=== PATIENT | female | born 1950 | race African-American/Black ===

== ENCOUNTER 2018-06-06 11:54 | Inpatient (IN) | payer MEDICARE, MEDICAID ==
[~2018-06-06] VITALS: Ht 160 cm; Wt 72.1 kg
[~2018-06-06 11:54] MED LIST: ALBU2.5V13; DULERA; PHEN100C4; PROAIR; QVAR80 IH; SPIRIVA; TIOT18CA3; VENTOLIN; [UNRECOGNIZED DRUG - REMARK]
[2018-06-06] MEDS ORDERED: SODIUM CHLORIDE 0.9% 1,000 ML IV ONE (13:16)
[2018-06-06] MEDS ORDERED: IPRATROPIUM/ALBUTEROL 0.5-3(2.5)MG/3ML NEB HHN ONE (13:30)
[2018-06-06 13:42] LABS: BASOPHILS % 0.5 % (0.0-2.0); HEMATOCRIT. 25.5 % (36.0-48.0); HEMOGLOBIN. 8.5 g/dL (12.0-16.0); LYMPHOCYTES % 19.5 % (20.0-50.0); MEAN CORPUSCULAR HEMOGLOBIN 32.9 pg (28.0-32.0); MEAN CORPUSCULAR VOLUME 98.2 fL (81.0-99.0); MEAN PLATELET VOLUME 7.5 fl (7.4-10.4); MONOCYTES % 14.5 % (2.0-8.0); NEUTROPHILS % 65.5 % (40.0-76.0); PLATELET 139 x1000/uL (130-400); RED CELL DISTRIBUTION WIDTH 15.8 % (11.6-14.6)
[2018-06-06 13:48] LABS: CHLORIDE 106 mEq/L (98-107)
[2018-06-06 13:50] LABS: PROTHROMBIN TIME 10.2 sec (9.6-11.0)
[2018-06-06 13:56] LABS: CREATINE KINASE 48 IU/L (26-192)
[2018-06-06 13:59] LABS: CREATINE KINASE MB FRACTION 1.3 ng/mL (0.5-3.6)
[2018-06-06 15:10] LABS: BG BASE EXCESS -12.9 mmol/L (-2.0-2.0); BG CARBOXYHEMOGLOBIN 0.3 % (0.5-1.5); BG DEOXYHEMOGLOBIN 2.3 % (0.0-5.0); BG FRACTION INSPIRED OXYGEN 21; BG HCO3 ACT 11.5 mmol/L (22.0-26.0); BG METHEMOGLOBIN 0.8 % (0.0-1.5); BG OXYGEN SATURATION 97.7 % (92.0-98.5); BG OXYHEMOGLOBIN 96.6 % (94.0-97.0); BG PCO2 22.2 mmHg (35.0-45.0); BG PH 7.334 (7.350-7.450); BG PO2 118.3 mmHg (75.0-100.0); BG SAMPLE SITE RIGHT BRACHIAL; BG TOTAL HEMOGLOBIN 7.6 g/dL (12.0-18.0); BG VENT MODE ROOM AIR
[2018-06-06] MEDS ORDERED: DOCUSATE SODIUM 100MG CAPSULE PO PRN (17:45)
[2018-06-06] MEDS ORDERED: MAGNESIUM/ALUMINUM HYDROXIDE/SIMETHICONE 30ML UDC PO PRN (17:45)
[2018-06-06] MEDS ORDERED: GUAIFENESIN 200MG/10ML SUGAR FREE UDC PO PRN (17:45)
[2018-06-06] MEDS ORDERED: DEXTROSE 50% WATER 50ML SYRINGE IV PRN (17:45)
[2018-06-06] MEDS ORDERED: ONDANSETRON HCL 4MG/2ML INJ IV PRN (17:45)
[2018-06-06] MEDS ORDERED: HYDRALAZINE 20MG/ML VIAL IV PRN (17:45)
[2018-06-06] MEDS ORDERED: ACETAMINOPHEN 325MG TABLET PO PRN (17:45)
[2018-06-06] MEDS ORDERED: ENOXAPARIN 40MG/0.4ML SYR SUBCUT SCH (17:45)
[2018-06-06] MEDS ORDERED: IPRATROPIUM/ALBUTEROL 0.5-3(2.5)MG/3ML NEB INH PRN (17:45)
[2018-06-06] MEDS ORDERED: CLONIDINE 0.1MG TABLET PO PRN (17:45)
[2018-06-06] MEDS ORDERED: INSULIN LISPRO 100 UNITS/ML SUBCUT SCH (18:20)
[2018-06-06] MEDS ORDERED: HYDROMORPHONE HCL/PF 2MG/ML CPJ IV PRN (19:00)
[2018-06-06] MEDS: SODIUM CHLORIDE 0.9% 1,000 ML IV SCH (19:30)
[2018-06-06] MEDS: HYDROCODONE/ACETAMINOPHEN 5/325MG TABLET PO PRN (20:00)
[2018-06-06] MEDS ORDERED: ENOXAPARIN 40MG/0.4ML SYR SUBCUT NR (20:00)
[2018-06-06] MEDS ORDERED: BLOOD SUGAR DIAGNOSTIC STRIP TEST SCH (21:00)
[2018-06-06] MEDS ORDERED: NA PHOS,M-B/NA PHOS,DI-BA ENEMA 118ML PR PRN (21:00)
[2018-06-06 22:00] VITALS: BP 100/60
[2018-06-06] MEDS: LORAZEPAM 2MG/ML CPJ IV PRN (23:01)
[2018-06-06] MEDS: DIPHENHYDRAMINE 50MG/ML VIAL IV PRN (23:02)
[2018-06-07] VITALS: BP 100/60
[2018-06-07 01:16] LABS: CREATINE KINASE 111 IU/L (26-192)
[2018-06-07 01:17] LABS: CREATINE KINASE MB FRACTION 3.1 ng/mL (0.5-3.6)
[2018-06-07] MEDS: SODIUM CHLORIDE 0.9% 1,000 ML IV SCH ×2 (03:55→19:42)
[2018-06-07 04:00] VITALS: BP 104/62
[2018-06-07 06:19] LABS: HEMATOCRIT. 22.2 % (36.0-48.0); HEMOGLOBIN. 7.2 g/dL (12.0-16.0); MEAN CORPUSCULAR HEMOGLOBIN 32.3 pg (28.0-32.0); MEAN CORPUSCULAR VOLUME 99.5 fL (81.0-99.0); MEAN PLATELET VOLUME 8.5 fl (7.4-10.4); PLATELET 114 x1000/uL (130-400); RED BLOOD CELL COUNT 2.24 mill/uL (4.2-5.4)
[2018-06-07 06:24] LABS: CHLORIDE 114 mEq/L (98-107)
[2018-06-07 06:44] LABS: CREATINE KINASE 97 IU/L (26-192)
[2018-06-07 06:45] LABS: T4 FREE 0.69 ng/dL (0.76-1.46)
[2018-06-07 06:50] LABS: CREATINE KINASE MB FRACTION 3.2 ng/mL (0.5-3.6)
[2018-06-07 08:00] VITALS: BP 112/56
[2018-06-07 11:22] LABS: NUCLEATED RED BLOOD CELLS 1 /100 WBC
[2018-06-07 11:23] LABS: PLATELET ESTIMATE DECREASED
[2018-06-07 12:00] VITALS: BP 105/61
[2018-06-07 16:00] VITALS: BP 100/60
[2018-06-07 16:38] LABS: HEMATOCRIT. 26.6 % (36.0-48.0); HEMOGLOBIN. 8.5 g/dL (12.0-16.0); MEAN CORPUSCULAR HEMOGLOBIN 33.1 pg (28.0-32.0); MEAN PLATELET VOLUME 8.3 fl (7.4-10.4); PLATELET 143 x1000/uL (130-400); RED BLOOD CELL COUNT 2.59 mill/uL (4.2-5.4); RED CELL DISTRIBUTION WIDTH 15.8 % (11.6-14.6)
[2018-06-07 16:54] LABS: LDL CHOLESTEROL 63 mg/dL (5-100)
[2018-06-07 16:55] LABS: CREATINE KINASE 113 IU/L (26-192)
[2018-06-07 16:58] LABS: HDL CHOLESTEROL 59 mg/dL (40-59)
[2018-06-07 16:59] LABS: T4 FREE 0.76 ng/dL (0.76-1.46)
[2018-06-07 17:00] LABS: CREATINE KINASE MB FRACTION 2.9 ng/mL (0.5-3.6)
[2018-06-07 17:24] LABS: PLATELET ESTIMATE NORMAL
[2018-06-07 20:00] VITALS: BP 108/57
[2018-06-07] MEDS: DIPHENHYDRAMINE 50MG/ML VIAL IV PRN (20:35)
[2018-06-07] MEDS: SODIUM CHLORIDE 0.9% INJ 3ML FLUSH IVF SCH (20:36)
[2018-06-07] MEDS: ENOXAPARIN 40MG/0.4ML SYR SUBCUT SCH (20:36)
[2018-06-07] MEDS: LORAZEPAM 2MG/ML CPJ IV PRN (20:41)
[2018-06-08] VITALS (7 sets, daily range): BP systolic 97–140; BP diastolic 61–82
[2018-06-08 00:02] LABS: CREATINE KINASE 90 IU/L (26-192)
[2018-06-08 00:06] LABS: CREATINE KINASE MB FRACTION 2.9 ng/mL (0.5-3.6)
[2018-06-08] MEDS: DIPHENHYDRAMINE 50MG/ML VIAL IV PRN (00:47)
[2018-06-08 09:06] LABS: HEMOGLOBIN. 7.4 g/dL (12.0-16.0); MEAN CORPUSCULAR VOLUME 99.3 fL (81.0-99.0); PLATELET 149 x1000/uL (130-400); RED BLOOD CELL COUNT 2.31 mill/uL (4.2-5.4); RED CELL DISTRIBUTION WIDTH 15.6 % (11.6-14.6)
[2018-06-08 09:21] LABS: CHLORIDE 117 mEq/L (98-107)
[2018-06-08 09:30] LABS: CREATINE KINASE 69 IU/L (26-192)
[2018-06-08 09:32] LABS: CREATINE KINASE MB FRACTION 1.8 ng/mL (0.5-3.6)
[2018-06-08 09:35] LABS: PLATELET ESTIMATE NORMAL
[2018-06-08] MEDS: SODIUM CHLORIDE 0.9% INJ 3ML FLUSH IVF SCH ×2 (14:00→22:00)
[2018-06-08] MEDS: SODIUM CHLORIDE 0.9% 1,000 ML IV SCH ×2 (16:30→23:58)
[2018-06-08] MEDS: HYDROCODONE/ACETAMINOPHEN 5/325MG TABLET PO PRN (17:23)
[2018-06-08] MEDS: ENOXAPARIN 40MG/0.4ML SYR SUBCUT SCH (21:46)
[2018-06-09] VITALS (10 sets, daily range): BP systolic 108–140; BP diastolic 61–83
[2018-06-09] MEDS: SODIUM CHLORIDE 0.9% INJ 3ML FLUSH IVF SCH ×2 (06:00→21:46)
[2018-06-09 06:43] LABS: CHLORIDE 120 mEq/L (98-107)
[2018-06-09 07:08] LABS: MEAN CORPUSCULAR HEMOGLOBIN 32.8 pg (28.0-32.0); MEAN CORPUSCULAR VOLUME 99.8 fL (81.0-99.0); MEAN PLATELET VOLUME 7.9 fl (7.4-10.4); PLATELET 162 x1000/uL (130-400); RED BLOOD CELL COUNT 2.04 mill/uL (4.2-5.4); RED CELL DISTRIBUTION WIDTH 15.7 % (11.6-14.6)
[2018-06-09 07:44] LABS: HEMATOCRIT. 20.4 % (36.0-48.0); HEMOGLOBIN. 6.7 g/dL (12.0-16.0)
[2018-06-09 10:12] LABS: PLATELET ESTIMATE NORMAL
[2018-06-09] MEDS: SODIUM CHLORIDE 0.9% 1,000 ML IV SCH (15:31)
[2018-06-09 18:42] LABS: HEMATOCRIT 26.7 % (36.0-48.0); HEMOGLOBIN 8.9 g/dL (12.0-16.0)
[2018-06-09] MEDS: ENOXAPARIN 40MG/0.4ML SYR SUBCUT SCH (21:45)
[2018-06-09] MEDS: HYDROCODONE/ACETAMINOPHEN 5/325MG TABLET PO PRN (21:46)
[2018-06-10] VITALS: BP 132/81
[2018-06-10 04:00] VITALS: BP 130/81
[2018-06-10] MEDS: SODIUM CHLORIDE 0.9% INJ 3ML FLUSH IVF SCH (06:18)
[2018-06-10] MEDS: HYDROCODONE/ACETAMINOPHEN 5/325MG TABLET PO PRN (06:19)
[2018-06-10] MEDS: SODIUM CHLORIDE 0.9% 1,000 ML IV SCH (06:19)
[2018-06-10 06:58] LABS: HEMATOCRIT. 24.8 % (36.0-48.0); HEMOGLOBIN. 8.5 g/dL (12.0-16.0); MEAN CORPUSCULAR VOLUME 93.6 fL (81.0-99.0); MEAN PLATELET VOLUME 7.8 fl (7.4-10.4); PLATELET 169 x1000/uL (130-400); RED BLOOD CELL COUNT 2.65 mill/uL (4.2-5.4); RED CELL DISTRIBUTION WIDTH 16.8 % (11.6-14.6)
[2018-06-10 07:24] LABS: CHLORIDE 118 mEq/L (98-107)
[2018-06-10 07:50] VITALS: BP 112/62
[2018-06-10 08:04] VITALS: BP 112/62
[2018-06-10 09:20] LABS: PLATELET ESTIMATE NORMAL
== END 2018-06-10 13:43 | disposition home or self-care (01) | DRG 422 ==
LOC: ER 11:54 → 7WST 16:06 → EDBEDREQ 16:11 → ENRESERV 20:32
PROVIDERS: ADMIT Internal Medicine; ATTEND Internal Medicine
PROC: 30233N1 Transfusion of Nonautologous Red Blood Cells into Peripheral Vein, Percutaneous Approach (ICD-10-PCS; principal; 2018-06-09)
DX: E86.0 Dehydration (principal); I95.9 Hypotension, unspecified; E46 Unspecified protein-calorie malnutrition; G90.8 Other disorders of autonomic nervous system; J44.9 Chronic obstructive pulmonary disease, unspecified; D64.9 Anemia, unspecified; I10 Essential (primary) hypertension; F31.9 Bipolar disorder, unspecified; G40.909 Epilepsy, unspecified, not intractable, without status epilepticus; R62.7 Adult failure to thrive; R79.89 Other specified abnormal findings of blood chemistry; D72.819 Decreased white blood cell count, unspecified; Z79.899 Other long term (current) drug therapy; Z68.28 Body mass index [BMI] 28.0-28.9, adult; Z91.81 History of falling
CPT/HCPCS: 36415; 36600; 71045; 80048; 80061; 82375; 82550; 82553; 82805; 83036; 83605; 83880; 84439; 84443; 84484; 85014; 85018; 85379; 86850; 86900; 86920; 93005; 93306; 93970; 94640; 96360; 97116; 97162; 97530; 99285; C1893; J1170; J1200; J1650; J2060; J7030; J7040; J7620; P9016

== ENCOUNTER 2018-07-29 20:07 | Inpatient (IN) | payer MEDICARE, MEDICAID ==
[~2018-07-29] VITALS: Ht 160 cm; Wt 49.9 kg
[2018-07-29] MEDS ORDERED: KETOROLAC 30MG/ML VIAL IV STA (21:05)
[2018-07-29] MEDS ORDERED: ACETAMINOPHEN 325MG TABLET PO STA (21:05)
[2018-07-29] MEDS ORDERED: SODIUM CHLORIDE 0.9% 1,000 ML IV ONE ×2 (21:05→23:22)
[2018-07-29 21:35] LABS: BASOPHILS % 0.4 % (0.0-2.0); EOSINOPHILS % 0.1 % (0.0-5.0); HEMOGLOBIN. 9.4 g/dL (12.0-16.0); LYMPHOCYTES % 16.3 % (20.0-50.0); MEAN CORPUSCULAR HEMOGLOBIN 32.3 pg (28.0-32.0); MEAN CORPUSCULAR VOLUME 96.1 fL (81.0-99.0); MEAN PLATELET VOLUME 6.9 fl (7.4-10.4); MONOCYTES % 9.7 % (2.0-8.0); NEUTROPHILS % 73.5 % (40.0-76.0); PLATELET 470 x1000/uL (130-400); RED BLOOD CELL COUNT 2.92 mill/uL (4.2-5.4); RED CELL DISTRIBUTION WIDTH 15.9 % (11.6-14.6)
[2018-07-29 21:42] LABS: CHLORIDE 104 mEq/L (98-107)
[2018-07-29 22:15] LABS: CLARITY URINE CLEAR (CLEAR); COLOR URINE DARK YELLOW (YELLOW); KETONES URINE TRACE (NEGATIVE); LEUKOCYTE ESTERASE URINE TRACE (NEGATIVE); NITRITE URINE NEGATIVE (NEGATIVE); OCCULT BLOOD URINE NEGATIVE (NEGATIVE); PH URINE 5.5 (4.5-8.0); PROTEIN URINE TRACE (NEGATIVE); SPECIFIC GRAVITY URINE 1.021 (1.005-1.030)
[2018-07-29] MEDS ORDERED: PIPERACILLIN/TAZ 3.375G PREMIX 50 ML IV ONE (23:30)
[2018-07-29] MEDS ORDERED: VANCOMYCIN 1 G PREMIX 200 ML IV ONE (23:30)
[2018-07-30] MEDS ORDERED: ACETAMINOPHEN 325MG TABLET PO PRN (07:15)
[2018-07-30] MEDS ORDERED: DIPHENHYDRAMINE 50MG/ML VIAL IV PRN (07:15)
[2018-07-30] MEDS ORDERED: HYDROMORPHONE HCL/PF 2MG/ML CPJ IV PRN (07:15)
[2018-07-30] MEDS ORDERED: CLONIDINE 0.1MG TABLET PO PRN (07:15)
[2018-07-30] MEDS ORDERED: MAGNESIUM/ALUMINUM HYDROXIDE/SIMETHICONE 30ML UDC PO PRN (07:15)
[2018-07-30] MEDS ORDERED: LORAZEPAM 2MG/ML CPJ IV PRN (07:15)
[2018-07-30] MEDS ORDERED: HYDRALAZINE 20MG/ML VIAL IV PRN (07:15)
[2018-07-30] MEDS ORDERED: IPRATROPIUM/ALBUTEROL 0.5-3(2.5)MG/3ML NEB INH PRN (07:15)
[2018-07-30] MEDS ORDERED: DOCUSATE SODIUM 100MG CAPSULE PO PRN (07:15)
[2018-07-30] MEDS ORDERED: ONDANSETRON HCL 4MG/2ML INJ IV PRN (07:15)
[2018-07-30] MEDS ORDERED: GUAIFENESIN 200MG/10ML SUGAR FREE UDC PO PRN (07:15)
[2018-07-30] MEDS ORDERED: NA PHOS,M-B/NA PHOS,DI-BA ENEMA 118ML PR PRN (09:00)
[2018-07-30 09:20] VITALS: BP 137/64
[2018-07-30] MEDS ORDERED: LEVOFLOXACIN 500MG PREMIX 100 ML IV SCH (11:00)
[2018-07-30] MEDS: HYDROCODONE/ACETAMINOPHEN 10/325MG TABLET PO PRN ×2 (11:15→21:40)
[2018-07-30] MEDS: ENOXAPARIN 40MG/0.4ML SYR SUBCUT SCH (11:15)
[2018-07-30 12:00] VITALS: BP 138/78
[2018-07-30 15:22] LABS: CREATINE KINASE 22 IU/L (26-192)
[2018-07-30 15:23] LABS: CREATINE KINASE MB FRACTION 1.2 ng/mL (0.5-3.6)
[2018-07-30 17:09] VITALS: BP 113/74
[2018-07-30] MEDS: SODIUM CHLORIDE 0.9% INJ 3ML FLUSH IVF SCH ×2 (18:50→21:43)
[2018-07-30 20:00] VITALS: BP 147/97
[2018-07-31] VITALS: BP 114/67
[2018-07-31 00:09] LABS: CREATINE KINASE 19 IU/L (26-192)
[2018-07-31 00:10] LABS: CREATINE KINASE MB FRACTION < 1.0 ng/mL (0.5-3.6)
[2018-07-31 04:00] VITALS: BP 124/71
[2018-07-31] MEDS: SODIUM CHLORIDE 0.9% INJ 3ML FLUSH IVF SCH ×3 (05:45→22:30)
[2018-07-31 06:01] LABS: BASOPHILS % 0.3 % (0.0-2.0); EOSINOPHILS % 0.1 % (0.0-5.0); HEMATOCRIT. 22.4 % (36.0-48.0); HEMOGLOBIN. 7.9 g/dL (12.0-16.0); LYMPHOCYTES % 22.7 % (20.0-50.0); MEAN CORPUSCULAR HEMOGLOBIN 34.1 pg (28.0-32.0); MEAN CORPUSCULAR VOLUME 96.6 fL (81.0-99.0); MEAN PLATELET VOLUME 7.3 fl (7.4-10.4); MONOCYTES % 14.5 % (2.0-8.0); NEUTROPHILS % 62.4 % (40.0-76.0); PLATELET 361 x1000/uL (130-400); RED BLOOD CELL COUNT 2.32 mill/uL (4.2-5.4); RED CELL DISTRIBUTION WIDTH 15.5 % (11.6-14.6)
[2018-07-31 06:37] LABS: CHLORIDE 108 mEq/L (98-107)
[2018-07-31] MEDS: ENOXAPARIN 40MG/0.4ML SYR SUBCUT SCH (07:56)
[2018-07-31 12:00] VITALS: BP 126/72
[2018-07-31 16:00] VITALS: BP 130/79
[2018-07-31 16:46] LABS: CLARITY URINE CLEAR (CLEAR); COLOR URINE YELLOW (YELLOW); KETONES URINE NEGATIVE (NEGATIVE); LEUKOCYTE ESTERASE URINE 2+ (NEGATIVE); NITRITE URINE NEGATIVE (NEGATIVE); OCCULT BLOOD URINE NEGATIVE (NEGATIVE); PH URINE 6.5 (4.5-8.0); PROTEIN URINE NEGATIVE (NEGATIVE); SPECIFIC GRAVITY URINE 1.011 (1.005-1.030); UROBILINOGEN URINE 0.2 E.U./dL (0.2-1.0)
[2018-08-01] VITALS: BP 129/76
[2018-08-01 04:00] VITALS: BP 146/80
[2018-08-01] MEDS: SODIUM CHLORIDE 0.9% INJ 3ML FLUSH IVF SCH ×3 (06:00→21:39)
[2018-08-01] MEDS ORDERED: ALBUTEROL (0.083%) 2.5MG/3ML NEB HHN PRN (07:15)
[2018-08-01 07:42] LABS: BASOPHILS % 0.2 % (0.0-2.0); EOSINOPHILS % 0.1 % (0.0-5.0); HEMATOCRIT. 21.3 % (36.0-48.0); HEMOGLOBIN. 7.2 g/dL (12.0-16.0); LYMPHOCYTES % 21.8 % (20.0-50.0); MEAN CORPUSCULAR HEMOGLOBIN 32.4 pg (28.0-32.0); MEAN CORPUSCULAR VOLUME 95.5 fL (81.0-99.0); MEAN PLATELET VOLUME 7.2 fl (7.4-10.4); MONOCYTES % 13.1 % (2.0-8.0); NEUTROPHILS % 64.8 % (40.0-76.0); PLATELET 362 x1000/uL (130-400); RED BLOOD CELL COUNT 2.23 mill/uL (4.2-5.4); RED CELL DISTRIBUTION WIDTH 15.4 % (11.6-14.6)
[2018-08-01 07:44] LABS: CHLORIDE 109 mEq/L (98-107)
[2018-08-01 07:52] VITALS: BP 120/80
[2018-08-01] MEDS ORDERED: APIX5TAB PO (08:42)
[2018-08-01] MEDS: ENOXAPARIN 40MG/0.4ML SYR SUBCUT SCH (09:08)
[2018-08-01] MEDS ORDERED: LEVOFLOXACIN 250MG TABLET PO SCH (11:00)
[2018-08-01 12:00] VITALS: BP 119/75
[2018-08-01] MEDS ORDERED: LEVOFLOXACIN 250MG PREMIX 50 ML IV SCH ×2 (14:15→21:00)
[2018-08-01 16:00] VITALS: BP 134/79
[2018-08-01 20:00] VITALS: BP 116/67
[2018-08-01] MEDS: HYDROCODONE/ACETAMINOPHEN 10/325MG TABLET PO PRN (21:52)
[2018-08-02] VITALS: BP 121/72
[2018-08-02 04:00] VITALS: BP 137/75
[2018-08-02 08:00] VITALS: BP 114/69
[2018-08-02] MEDS: ENOXAPARIN 40MG/0.4ML SYR SUBCUT SCH (08:15)
[2018-08-02 08:59] VITALS: BP 114/69
[2018-08-03 08:00] VITALS: BP 112/59
== END 2018-08-02 10:28 | disposition home or self-care (01) | DRG 720 ==
LOC: ER 20:07 → 7WST 07-30 00:34 → EDBEDREQ 07-30 00:36 → EDBEDREQSVC 07-30 00:36 → EDBEDREQTM 07-30 00:37 → ENRESERV 07-30 07:06 → 6WST 07-31 08:09
PROVIDERS: ADMIT Internal Medicine; ATTEND Internal Medicine
DX: A41.9 Sepsis, unspecified organism (principal); E87.2 Acidosis; E44.0 Moderate protein-calorie malnutrition; J43.9 Emphysema, unspecified; M16.11 Unilateral primary osteoarthritis, right hip; D64.9 Anemia, unspecified; I10 Essential (primary) hypertension; Z53.29 Procedure and treatment not carried out because of patient's decision for other reasons; W18.30XA Fall on same level, unspecified, initial encounter; Y93.89 Activity, other specified; Y92.091 Bathroom in other non-institutional residence as the place of occurrence of the external cause; Y99.8 Other external cause status
CPT/HCPCS: 36415; 71045; 73502; 80048; 82550; 82553; 83605; 84484; 93970; 94640; 96374; 97162; 97164; 99285; C1893; J1170; J1650; J1885; J1956; J2543; J3370; J7030; J7040; J7620

== ENCOUNTER 2018-10-03 10:50 | Emergency (ER) | payer MEDICARE, MEDICAID ==
[~2018-10-03] VITALS: Ht 160 cm; Wt 61.0 kg
[~2018-10-03 10:50] MED LIST changes: +APIX5TAB PO
[2018-10-03] MEDS ORDERED: KETOROLAC 30MG/ML VIAL IM ONE (12:00)
[2018-10-03 15:49] VITALS: BP 115/84
== END 2018-10-03 15:49 | disposition home or self-care (01) ==
LOC: ER 10:50
DX: S70.01XA Contusion of right hip, initial encounter (principal); W05.0XXA Fall from non-moving wheelchair, initial encounter; Y93.9 Activity, unspecified; Y92.9 Unspecified place or not applicable; I10 Essential (primary) hypertension; R56.9 Unspecified convulsions
CPT/HCPCS: 72170; 96372; 99283; J1885

== ENCOUNTER 2018-11-01 10:36 | Inpatient (IN) | payer MEDICARE, MEDICAID ==
[~2018-11-01] VITALS: Ht 162.6 cm; Wt 59.0 kg
[2018-11-01] MEDS ORDERED: MORPHINE SULFATE 4 MG/ML CPJ (NOT FOR IM USE) IV ONE (12:00)
[2018-11-01] MEDS ORDERED: ALBUTEROL (0.083%) 2.5MG/3ML NEB HHN ONE (12:00)
[2018-11-01] MEDS ORDERED: IPRATROPIUM BROMIDE (0.02%) 0.5MG/2.5ML NEB HHN ONE (12:00)
[2018-11-01 12:08] LABS: CHLORIDE 101 mEq/L (98-107)
[2018-11-01 12:13] LABS: BASOPHILS % 0.8 % (0.0-2.0); EOSINOPHILS % 0.1 % (0.0-5.0); HEMATOCRIT. 34.4 % (36.0-48.0); HEMOGLOBIN. 11.4 g/dL (12.0-16.0); LYMPHOCYTES % 14.6 % (20.0-50.0); MEAN CORPUSCULAR VOLUME 93.3 fL (81.0-99.0); MEAN PLATELET VOLUME 7.1 fl (7.4-10.4); MONOCYTES % 11.6 % (2.0-8.0); NEUTROPHILS % 72.9 % (40.0-76.0); PLATELET 602 x1000/uL (130-400); RED BLOOD CELL COUNT 3.69 mill/uL (4.2-5.4)
[2018-11-01 16:00] VITALS: BP 144/94
[2018-11-01] MEDS ORDERED: ONDANSETRON HCL 4MG/2ML INJ IV PRN (17:30)
[2018-11-01] MEDS ORDERED: MAGNESIUM/ALUMINUM HYDROXIDE/SIMETHICONE 30ML UDC PO PRN (17:30)
[2018-11-01] MEDS ORDERED: ACETAMINOPHEN 325MG TABLET PO PRN (17:30)
[2018-11-01] MEDS ORDERED: DOCUSATE SODIUM 100MG CAPSULE PO PRN (17:30)
[2018-11-01] MEDS ORDERED: HYDROMORPHONE HCL/PF 2MG/ML CPJ IV PRN (17:30)
[2018-11-01] MEDS ORDERED: DIPHENHYDRAMINE 50MG/ML VIAL IV PRN (17:30)
[2018-11-01] MEDS ORDERED: GUAIFENESIN 200MG/10ML SUGAR FREE UDC PO PRN (17:30)
[2018-11-01] MEDS ORDERED: LORAZEPAM 2MG/ML CPJ IV PRN (17:30)
[2018-11-01] MEDS ORDERED: CLONIDINE 0.1MG TABLET PO PRN (17:30)
[2018-11-01] MEDS ORDERED: IPRATROPIUM/ALBUTEROL 0.5-3(2.5)MG/3ML NEB HHN PRN (17:30)
[2018-11-01] MEDS ORDERED: NA PHOS,M-B/NA PHOS,DI-BA ENEMA 118ML PR PRN (17:30)
[2018-11-01] MEDS: ENOXAPARIN 40MG/0.4ML SYR SUBCUT SCH (18:56)
[2018-11-01 20:00] VITALS: BP 137/88
[2018-11-01] MEDS: SODIUM CHLORIDE 0.9% INJ 3ML FLUSH IVF SCH (22:30)
[2018-11-01 23:56] LABS: CREATINE KINASE 32 IU/L (26-192)
[2018-11-01 23:58] LABS: CREATINE KINASE MB FRACTION < 1.0 ng/mL (0.5-3.6)
[2018-11-02] VITALS: BP 112/78
[2018-11-02 04:00] VITALS: BP 110/66
[2018-11-02] MEDS: SODIUM CHLORIDE 0.9% INJ 3ML FLUSH IVF SCH ×3 (06:30→20:32)
[2018-11-02 08:00] VITALS: BP 122/67
[2018-11-02] MEDS ORDERED: ASPIRIN 81MG EC TABLET PO SCH (09:00)
[2018-11-02 09:16] LABS: CHLORIDE 105 mEq/L (98-107); HEMOGLOBIN. 10.1 g/dL (12.0-16.0); MEAN CORPUSCULAR HEMOGLOBIN 31.2 pg (28.0-32.0); MEAN CORPUSCULAR VOLUME 92.8 fL (81.0-99.0); PLATELET 555 x1000/uL (130-400); RED BLOOD CELL COUNT 3.24 mill/uL (4.2-5.4); RED CELL DISTRIBUTION WIDTH 15.6 % (11.6-14.6)
[2018-11-02 09:30] LABS: CREATINE KINASE 12 IU/L (26-192); CREATINE KINASE MB FRACTION < 1.0 ng/mL (0.5-3.6); HDL CHOLESTEROL 59 mg/dL (40-59); LDL CHOLESTEROL 75 mg/dL (5-100); T4 FREE 0.98 ng/dL (0.76-1.46)
[2018-11-02 12:00] VITALS: BP 128/78
[2018-11-02 13:16] LABS: PLATELET ESTIMATE INCREASED
[2018-11-02] MEDS: HYDROCODONE/ACETAMINOPHEN 10/325MG TABLET PO PRN (13:37)
[2018-11-02 16:00] VITALS: BP 121/78
[2018-11-02 16:49] LABS: INR 1.1; PROTHROMBIN TIME 11.2 sec (9.6-11.0)
[2018-11-02] MEDS: ENOXAPARIN 40MG/0.4ML SYR SUBCUT SCH (17:45)
[2018-11-02 20:00] VITALS: BP 132/77
[2018-11-02] MEDS: BUDESONIDE 0.5MG/2ML NEB HHN SCH (20:47)
[2018-11-02] MEDS: IPRATROPIUM/ALBUTEROL 0.5-3(2.5)MG/3ML NEB HHN SCH (20:47)
[2018-11-03] VITALS: BP 117/64
[2018-11-03] MEDS: IPRATROPIUM/ALBUTEROL 0.5-3(2.5)MG/3ML NEB HHN SCH ×4 (02:25→20:47)
[2018-11-03 04:00] VITALS: BP 115/65
[2018-11-03] MEDS: SODIUM CHLORIDE 0.9% INJ 3ML FLUSH IVF SCH ×3 (06:43→21:48)
[2018-11-03 08:00] VITALS: BP 112/63
[2018-11-03] MEDS: BUDESONIDE 0.5MG/2ML NEB HHN SCH ×3 (09:27→20:47)
[2018-11-03 11:56] VITALS: BP 128/73
[2018-11-03] MEDS: HYDROCODONE/ACETAMINOPHEN 10/325MG TABLET PO PRN ×2 (12:07→21:48)
[2018-11-03] MEDS: PHENYTOIN SODIUM EXTENDED 100MG CAPSULE PO SCH ×2 (14:11→21:47)
[2018-11-03 16:00] VITALS: BP 128/68
[2018-11-03] MEDS: ENOXAPARIN 40MG/0.4ML SYR SUBCUT SCH (18:00)
[2018-11-04] VITALS: BP 101/59
[2018-11-04] MEDS: IPRATROPIUM/ALBUTEROL 0.5-3(2.5)MG/3ML NEB HHN SCH ×4 (01:33→20:31)
[2018-11-04 04:00] VITALS: BP 102/61
[2018-11-04] MEDS: PHENYTOIN SODIUM EXTENDED 100MG CAPSULE PO SCH ×3 (05:48→21:44)
[2018-11-04] MEDS: SODIUM CHLORIDE 0.9% INJ 3ML FLUSH IVF SCH ×3 (05:48→21:44)
[2018-11-04] MEDS: BUDESONIDE 0.5MG/2ML NEB HHN SCH ×2 (07:09→20:34)
[2018-11-04] MEDS: HYDROCODONE/ACETAMINOPHEN 10/325MG TABLET PO PRN (08:21)
[2018-11-04 16:00] VITALS: BP 116/69
[2018-11-04] MEDS: ENOXAPARIN 40MG/0.4ML SYR SUBCUT SCH (16:54)
[2018-11-04 20:00] VITALS: BP 123/69
[2018-11-05] VITALS: BP 130/70
[2018-11-05 04:00] VITALS: BP 124/79
[2018-11-05] MEDS: PHENYTOIN SODIUM EXTENDED 100MG CAPSULE PO SCH (06:09)
[2018-11-05] MEDS: SODIUM CHLORIDE 0.9% INJ 3ML FLUSH IVF SCH (06:09)
[2018-11-05 08:00] VITALS: BP 116/72
[2018-11-05] MEDS: IPRATROPIUM/ALBUTEROL 0.5-3(2.5)MG/3ML NEB HHN SCH ×3 (08:31→13:53)
[2018-11-05] MEDS: BUDESONIDE 0.5MG/2ML NEB HHN SCH (08:31)
[2018-11-05] MEDS: HYDROCODONE/ACETAMINOPHEN 10/325MG TABLET PO PRN (09:44)
[2018-11-05 12:00] VITALS: BP 112/68
[2018-11-05 15:52] VITALS: BP 112/68
== END 2018-11-05 16:40 | disposition home or self-care (01) | DRG 133 ==
LOC: ER 10:36 → 8WST 15:02 → EDBEDREQTM 15:10 → EDBEDREQ 15:10 → ENRESERV 15:26
PROVIDERS: ADMIT Internal Medicine; ATTEND Internal Medicine
PROC: 0W993ZZ Drainage of Right Pleural Cavity, Percutaneous Approach (ICD-10-PCS; principal; 2018-11-03)
DX: J96.00 Acute respiratory failure, unspecified whether with hypoxia or hypercapnia (principal); E43 Unspecified severe protein-calorie malnutrition; J91.8 Pleural effusion in other conditions classified elsewhere; I50.32 Chronic diastolic (congestive) heart failure; I11.0 Hypertensive heart disease with heart failure; G40.909 Epilepsy, unspecified, not intractable, without status epilepticus; D64.9 Anemia, unspecified; J43.9 Emphysema, unspecified; G89.29 Other chronic pain; R01.1 Cardiac murmur, unspecified; D72.825 Bandemia; Z68.22 Body mass index [BMI] 22.0-22.9, adult; Z79.01 Long term (current) use of anticoagulants; Z91.81 History of falling; Z79.899 Other long term (current) drug therapy
CPT/HCPCS: 32555; 36415; 71045; 80061; 82040; 82550; 82553; 82962; 83615; 83880; 84439; 84443; 84484; 88108; 88312; 93005; 94640; 96374; 97161; 97166; 99285; C1893; J1650; J2270; J7611; J7620; J7626

== ENCOUNTER 2019-07-16 07:50 | Inpatient (IN) | payer MEDICARE, MEDICAID ==
[~2019-07-16] VITALS: Ht 312.4 cm; Wt 47.4 kg
[~2019-07-16 07:50] MED LIST changes: +TOPUD PO
[2019-07-16] MEDS ORDERED: NALOXONE HCL 1 MG/ML 2ML VIAL IV ONE (08:15)
[2019-07-16 08:43] LABS: BG BASE EXCESS -3.9 mmol/L (-2.0-2.0); BG CARBOXYHEMOGLOBIN 0.3 % (0.5-1.5); BG DEOXYHEMOGLOBIN 2.8 % (0.0-5.0); BG FRACTION INSPIRED OXYGEN 21; BG HCO3 ACT 18.9 mmol/L (22.0-26.0); BG METHEMOGLOBIN 0.1 % (0.0-1.5); BG OXYGEN SATURATION 97.2 % (92.0-98.5); BG OXYHEMOGLOBIN 96.8 % (94.0-97.0); BG PCO2 27.4 mmHg (35.0-45.0); BG PH 7.457 (7.350-7.450); BG PO2 99.8 mmHg (75.0-100.0); BG SAMPLE SITE RIGHT BRACHIAL; BG TOTAL HEMOGLOBIN 10.9 g/dL (12.0-18.0); BG VENT MODE ROOM AIR
[2019-07-16 08:45] LABS: BASOPHILS % 0.5 % (0.0-2.0); EOSINOPHILS % 1.2 % (0.0-5.0); HEMATOCRIT. 34.2 % (36.0-48.0); HEMOGLOBIN. 11.6 g/dL (12.0-16.0); LYMPHOCYTES % 25.2 % (20.0-50.0); MEAN CORPUSCULAR HEMOGLOBIN 30.8 pg (28.0-32.0); MEAN CORPUSCULAR VOLUME 90.9 fL (81.0-99.0); MEAN PLATELET VOLUME 7.4 fl (7.4-10.4); MONOCYTES % 11.6 % (2.0-8.0); NEUTROPHILS % 61.5 % (40.0-76.0); PLATELET 412 x1000/uL (130-400); RED BLOOD CELL COUNT 3.76 mill/uL (4.2-5.4); RED CELL DISTRIBUTION WIDTH 15.2 % (11.6-14.6)
[2019-07-16 08:52] LABS: CHLORIDE 110 mEq/L (98-107)
[2019-07-16 08:56] LABS: ETHANOL BLOOD < 10 mg/dL
[2019-07-16 08:58] LABS: INR 1.1; PROTHROMBIN TIME 11.6 sec (9.6-11.0)
[2019-07-16 09:14] LABS: CLARITY URINE CLEAR (CLEAR); COLOR URINE YELLOW (YELLOW); KETONES URINE NEGATIVE (NEGATIVE); LEUKOCYTE ESTERASE URINE 2+ (NEGATIVE); NITRITE URINE POSITIVE (NEGATIVE); OCCULT BLOOD URINE NEGATIVE (NEGATIVE); PROTEIN URINE NEGATIVE (NEGATIVE); SPECIFIC GRAVITY URINE 1.012 (1.005-1.030); UROBILINOGEN URINE 0.2 E.U./dL (0.2-1.0)
[2019-07-16] MEDS ORDERED: CEFTRIAXONE 2 G PREMIX 50 ML IV ONE (09:15)
[2019-07-16] MEDS ORDERED: CEFTRIAXONE 2 G in DEXTROSE 5% WATER 50 ML IV ONE (09:30)
[2019-07-16 09:33] LABS: *AMPHETAMINES SCREEN URINE NEGATIVE (NEGATIVE); *BARBITURATES SCREEN URINE NEGATIVE (NEGATIVE); *BENZODIAZEPINES SCREEN URINE NEGATIVE (NEGATIVE)
[2019-07-16 09:34] LABS: *COCAINE SCREEN URINE NEGATIVE (NEGATIVE); CANNABINOID URINE SCREEN NEGATIVE (NEGATIVE); METHADONE URINE SCREEN NEGATIVE (NEGATIVE); OPIATES URINE SCREEN NEGATIVE (NEGATIVE); PHENCYCLIDINE URINE SCREEN NEGATIVE (NEGATIVE)
[2019-07-16] MEDS ORDERED: HALOPERIDOL LACTATE 5MG/ML VIAL IM ONE (12:15)
[2019-07-16] MEDS ORDERED: SODIUM CHLORIDE 0.9% 1000ML BAG (SEPSIS BOLUS) IV ONE (12:30)
[2019-07-16] MEDS ORDERED: MAGNESIUM/ALUMINUM HYDROXIDE/SIMETHICONE 30ML UDC PO PRN (15:15)
[2019-07-16] MEDS ORDERED: LORAZEPAM 2MG/ML CPJ IV PRN (15:15)
[2019-07-16] MEDS ORDERED: NA PHOS,M-B/NA PHOS,DI-BA ENEMA 118ML PR PRN (15:15)
[2019-07-16] MEDS ORDERED: ONDANSETRON HCL 4MG/2ML INJ IV PRN (15:15)
[2019-07-16] MEDS ORDERED: DIPHENHYDRAMINE 50MG/ML VIAL IV PRN (15:15)
[2019-07-16] MEDS ORDERED: ACETAMINOPHEN 325MG TABLET PO PRN ×2 (15:15)
[2019-07-16] MEDS: DEXT 5%/0.45% NACL 1000ML 1,000 ML IV SCH (16:17)
[2019-07-16 17:30] VITALS: BP 173/101
[2019-07-16 18:49] VITALS: BP 173/101
[2019-07-16 20:00] VITALS: BP 135/86
[2019-07-16] MEDS ORDERED: ZOLPIDEM TARTRATE 5MG TABLET PO PRN (21:00)
[2019-07-17] VITALS: BP 133/85
[2019-07-17] MEDS: DEXT 5%/0.45% NACL 1000ML 1,000 ML IV SCH ×2 (01:17→11:21)
[2019-07-17 04:00] VITALS: BP 147/87
[2019-07-17 06:22] LABS: BASOPHILS % 0.3 % (0.0-2.0); CHLORIDE 110 mEq/L (98-107); EOSINOPHILS % 1.4 % (0.0-5.0); HEMATOCRIT. 31.1 % (36.0-48.0); HEMOGLOBIN. 10.4 g/dL (12.0-16.0); LYMPHOCYTES % 21.2 % (20.0-50.0); MEAN CORPUSCULAR HEMOGLOBIN 30.7 pg (28.0-32.0); MEAN CORPUSCULAR VOLUME 91.4 fL (81.0-99.0); MONOCYTES % 11.6 % (2.0-8.0); NEUTROPHILS % 65.5 % (40.0-76.0); PLATELET 367 x1000/uL (130-400); RED CELL DISTRIBUTION WIDTH 15.1 % (11.6-14.6)
[2019-07-17 06:41] LABS: PHOSPHORUS 3.8 mg/dL (2.5-4.9)
[2019-07-17] MEDS ORDERED: POTASSIUM CHLORIDE 20MEQ TABLET SR PO NR ×2 (07:45→15:45)
[2019-07-17 08:00] VITALS: BP 137/75
[2019-07-17] MEDS: CEFTRIAXONE 1 G PREMIX 50 ML IV SCH (11:21)
[2019-07-17 12:00] VITALS: BP 139/73
[2019-07-17 16:00] VITALS: BP 128/79
[2019-07-17] MEDS ORDERED: MAGNESIUM 4 G PREMIX 100 ML IV ONE (17:00)
[2019-07-17 20:00] VITALS: BP 160/80
[2019-07-17] MEDS ORDERED: CLONIDINE 0.1MG TABLET PO PRN (21:30)
[2019-07-17] MEDS: LACTULOSE 20G/30ML UDC PO SCH (21:43)
[2019-07-18] VITALS: BP 149/77
[2019-07-18] MEDS: LACTULOSE 20G/30ML UDC PO SCH ×2 (06:23→14:00)
[2019-07-18 06:42] LABS: CHLORIDE 109 mEq/L (98-107)
[2019-07-18 06:54] LABS: PHOSPHORUS 4.6 mg/dL (2.5-4.9)
[2019-07-18 07:24] LABS: VITAMIN B12 SERUM 160 pg/mL (211-911)
[2019-07-18 08:00] VITALS: BP 124/80
[2019-07-18] MEDS ORDERED: AMLODIPINE 5MG TABLET PO SCH (09:00)
[2019-07-18] MEDS: CEFTRIAXONE 1 G PREMIX 50 ML IV SCH (09:22)
[2019-07-18] MEDS ORDERED: CYANOCOBALAMIN 1000MCG/ML VIAL IM SCH (10:15)
[2019-07-18 12:00] VITALS: BP 118/73
[2019-07-18 14:29] VITALS: BP 122/72
[2019-07-18 15:10] VITALS: BP 122/72
[2019-07-18 16:00] VITALS: BP 122/72
== END 2019-07-18 16:25 | disposition home or self-care (01) | DRG 720 ==
LOC: ER 07:50 → MICUSO 12:19 → EDBEDREQ 12:23 → EDBEDREQTM 12:23 → 5WST 17:40
PROVIDERS: ADMIT Internal Medicine; ATTEND Internal Medicine
DX: A41.9 Sepsis, unspecified organism (principal); G93.41 Metabolic encephalopathy; E83.42 Hypomagnesemia; E11.9 Type 2 diabetes mellitus without complications; E87.6 Hypokalemia; N39.0 Urinary tract infection, site not specified; J45.909 Unspecified asthma, uncomplicated; I10 Essential (primary) hypertension; K76.0 Fatty (change of) liver, not elsewhere classified; Z79.01 Long term (current) use of anticoagulants; Z79.899 Other long term (current) drug therapy
CPT/HCPCS: 36415; 36600; 71045; 76700; 80048; 80053; 80305; 80307; 80320; 80329; 81003; 82140; 82375; 82607; 82805; 82962; 83036; 83605; 83735; 84100; 84443; 84484; 85025; 86592; 87077; 87186; 93005; 93970; 96365; 97116; 97162; 99291; J0696; J1630; J2060; J2310; J3420; J3475; J7060; G0480

== ENCOUNTER 2019-12-19 12:13 | Inpatient (IN) | payer MEDICARE, MEDICAID ==
[~2019-12-19] VITALS: Ht 160 cm; Wt 69.9 kg
[~2019-12-19 12:13] MED LIST changes: -DULERA; -PROAIR; -SPIRIVA; -VENTOLIN; -[UNRECOGNIZED DRUG - REMARK]
[2019-12-19] MEDS ORDERED: OXYCODONE HCL/ACETAMINOPHEN 5/325MG TABLET PO ONE (13:15)
[2019-12-19 15:37] LABS: BG CARBOXYHEMOGLOBIN 0.5 % (0.5-1.5); BG HCO3 ACT 18.5 mmol/L (22.0-26.0); BG METHEMOGLOBIN 0.3 % (0.0-1.5); BG OXYHEMOGLOBIN 94.2 % (94.0-97.0); BG PCO2 29.5 mmHg (35.0-45.0); BG PH 7.415 (7.350-7.450); BG PO2 75.2 mmHg (75.0-100.0); BG SAMPLE SITE RIGHT BRACHIAL; BG TOTAL HEMOGLOBIN 11.6 g/dL (12.0-18.0); BG VENT MODE ROOM AIR
[2019-12-19 15:52] LABS: BASOPHILS % 0.4 % (0.0-2.0); EOSINOPHILS % 0.2 % (0.0-5.0); HEMATOCRIT. 32.7 % (36.0-48.0); HEMOGLOBIN. 10.9 g/dL (12.0-16.0); LYMPHOCYTES % 14.6 % (20.0-50.0); MEAN CORPUSCULAR HEMOGLOBIN 29.2 pg (28.0-32.0); MEAN CORPUSCULAR VOLUME 87.3 fL (81.0-99.0); MONOCYTES % 13.9 % (2.0-8.0); NEUTROPHILS % 70.9 % (40.0-76.0); PLATELET 228 x1000/uL (130-400); RED BLOOD CELL COUNT 3.75 mill/uL (4.2-5.4); RED CELL DISTRIBUTION WIDTH 15.3 % (11.6-14.6)
[2019-12-19 16:00] LABS: INR 1.2; PROTHROMBIN TIME 12.1 sec (9.6-11.0)
[2019-12-19 16:02] LABS: CHLORIDE 99 mEq/L (98-107)
[2019-12-19] MEDS ORDERED: VANCOMYCIN 1 G PREMIX 200 ML IV ONE (16:30)
[2019-12-19] MEDS ORDERED: PIPERACILLIN/TAZ 3.375G PREMIX 50 ML IV ONE (16:30)
[2019-12-19 17:37] LABS: D-DIMER 2.29 mg/L FEU (<0.50)
[2019-12-19] MEDS ORDERED: AMLO10TA80 PO (21:53)
[2019-12-19] MEDS ORDERED: BENA10TA75 PO (21:53)
[2019-12-19] MEDS ORDERED: GENT5DRO5 (21:53)
[2019-12-19 21:59] VITALS: BP 112/73
[2019-12-19 22:00] VITALS: BP 112/73
[2019-12-19] MEDS ORDERED: HYDROCODONE/ACETAMINOPHEN 5/325MG TABLET PO PRN (23:00)
[2019-12-19] MEDS ORDERED: IPRATROPIUM/ALBUTEROL 0.5-3(2.5)MG/3ML NEB NEB PRN (23:00)
[2019-12-19] MEDS ORDERED: MAGNESIUM/ALUMINUM HYDROXIDE/SIMETHICONE 30ML UDC PO PRN (23:00)
[2019-12-19] MEDS ORDERED: ONDANSETRON HCL 4MG/2ML INJ IV PRN (23:00)
[2019-12-19] MEDS ORDERED: CLONIDINE 0.1MG TABLET PO PRN (23:00)
[2019-12-19] MEDS ORDERED: MORPHINE SULFATE 2 MG/ML CPJ (NOT FOR IM USE) IV PRN (23:00)
[2019-12-20] VITALS (7 sets, daily range): BP systolic 101–159; BP diastolic 48–89
[2019-12-20 00:58] LABS: CHLORIDE 100 mEq/L (98-107)
[2019-12-20] MEDS: CEFTRIAXONE 1,000 MG in DEXTROSE 5% WATER 50 ML IV SCH (02:36)
[2019-12-20] MEDS ORDERED: CEFTRIAXONE 1 G PREMIX 50 ML IV SCH (03:00)
[2019-12-20] MEDS: AZITHROMYCIN 500 MG in DEXT 5% WATER 250 ML IV SCH (03:01)
[2019-12-20 07:22] LABS: HEMATOCRIT. 32.6 % (36.0-48.0); HEMOGLOBIN. 10.9 g/dL (12.0-16.0); MEAN CORPUSCULAR HEMOGLOBIN 29.3 pg (28.0-32.0); MEAN CORPUSCULAR VOLUME 87.9 fL (81.0-99.0); MEAN PLATELET VOLUME 7.6 fl (7.4-10.4); PLATELET 227 x1000/uL (130-400); RED BLOOD CELL COUNT 3.71 mill/uL (4.2-5.4); RED CELL DISTRIBUTION WIDTH 15.1 % (11.6-14.6)
[2019-12-20 07:47] LABS: CREATINE KINASE 14 IU/L (26-192); CREATINE KINASE MB FRACTION < 1.0 ng/mL (0.5-3.6); HDL CHOLESTEROL 37 mg/dL (40-59); LDL CHOLESTEROL 66 mg/dL (5-100)
[2019-12-20] MEDS ORDERED: ENOXAPARIN 40MG/0.4ML SYR SUBCUT SCH (09:00)
[2019-12-20 11:14] LABS: CLARITY URINE CLOUDY (CLEAR); COLOR URINE DK YELLOW (YELLOW); KETONES URINE NEGATIVE (NEGATIVE); LEUKOCYTE ESTERASE URINE 3+ (NEGATIVE); NITRITE URINE NEGATIVE (NEGATIVE); OCCULT BLOOD URINE NEGATIVE (NEGATIVE); PROTEIN URINE NEGATIVE (NEGATIVE); SPECIFIC GRAVITY URINE 1.019 (1.005-1.030)
[2019-12-20] MEDS ORDERED: POTASSIUM CHLORIDE 20MEQ TABLET SR PO NR (11:45)
[2019-12-20] MEDS: ACETAMINOPHEN 325MG TABLET PO PRN (11:54)
[2019-12-20 12:02] LABS: *BENZODIAZEPINES SCREEN URINE NEGATIVE (NEGATIVE); *COCAINE SCREEN URINE NEGATIVE (NEGATIVE)
[2019-12-20 12:03] LABS: *AMPHETAMINES SCREEN URINE NEGATIVE (NEGATIVE); *BARBITURATES SCREEN URINE NEGATIVE (NEGATIVE); CANNABINOID URINE SCREEN NEGATIVE (NEGATIVE); METHADONE URINE SCREEN NEGATIVE (NEGATIVE); OPIATES URINE SCREEN NEGATIVE (NEGATIVE); PHENCYCLIDINE URINE SCREEN NEGATIVE (NEGATIVE)
[2019-12-20] MEDS ORDERED: LORAZEPAM 2MG/ML CPJ IV PRN (13:30)
[2019-12-20] MEDS: PHENYTOIN SODIUM EXTENDED 100MG CAPSULE PO SCH ×2 (14:11→20:33)
[2019-12-20] MEDS: AMLODIPINE 10MG TABLET PO SCH (14:12)
[2019-12-20] MEDS: BENAZEPRIL 10MG TABLET PO SCH (14:13)
[2019-12-20] MEDS ORDERED: ALBUTEROL 6.7GM HFA INHALER ORI SCH (15:45)
[2019-12-20] MEDS: APIXABAN 5 MG TABLET PO SCH (16:40)
[2019-12-20 16:51] LABS: CREATINE KINASE 15 IU/L (26-192)
[2019-12-20 16:53] LABS: CREATINE KINASE MB FRACTION < 1.0 ng/mL (0.5-3.6)
[2019-12-20] MEDS ORDERED: MAGNESIUM 1 G PREMIX 100 ML IV NR (17:00)
[2019-12-20] MEDS ORDERED: MAGNESIUM 2 G PREMIX 50 ML IV NR (18:00)
[2019-12-20] MEDS: GUAIFENESIN 600MG ER TABLET PO SCH (20:33)
[2019-12-20 23:28] LABS: PLATELET ESTIMATE NORMAL
[2019-12-21] MEDS: CEFTRIAXONE 1,000 MG in DEXTROSE 5% WATER 50 ML IV SCH (03:32)
[2019-12-21] MEDS: AZITHROMYCIN 500 MG in DEXT 5% WATER 250 ML IV SCH (04:14)
[2019-12-21 06:36] VITALS: BP 122/65
[2019-12-21] MEDS: ALBUTEROL (0.083%) 2.5MG/3ML NEB HHN SCH ×2 (07:55→14:20)
[2019-12-21 08:01] VITALS: BP 129/65
[2019-12-21] MEDS: GUAIFENESIN 600MG ER TABLET PO SCH ×2 (08:37→21:00)
[2019-12-21] MEDS: AMLODIPINE 10MG TABLET PO SCH (08:37)
[2019-12-21] MEDS: PHENYTOIN SODIUM EXTENDED 100MG CAPSULE PO SCH ×2 (08:37→21:00)
[2019-12-21] MEDS: BENAZEPRIL 10MG TABLET PO SCH (08:38)
[2019-12-21] MEDS: ACETAMINOPHEN 325MG TABLET PO PRN (08:39)
[2019-12-21] MEDS: APIXABAN 5 MG TABLET PO SCH ×2 (08:39→16:05)
[2019-12-21 12:00] VITALS: BP 98/52
[2019-12-21] MEDS ORDERED: SODIUM CHLORIDE 0.9% 1,000 ML IV ONE ×2 (13:30)
[2019-12-21 16:00] VITALS: BP 110/66
[2019-12-21 16:23] LABS: HEMATOCRIT. 29.7 % (36.0-48.0); MEAN CORPUSCULAR HEMOGLOBIN 29.4 pg (28.0-32.0); MEAN CORPUSCULAR VOLUME 87.6 fL (81.0-99.0); MEAN PLATELET VOLUME 7.5 fl (7.4-10.4); PLATELET 308 x1000/uL (130-400); RED BLOOD CELL COUNT 3.38 mill/uL (4.2-5.4); RED CELL DISTRIBUTION WIDTH 14.9 % (11.6-14.6)
[2019-12-21 16:34] LABS: CHLORIDE 102 mEq/L (98-107)
[2019-12-21 16:42] LABS: PHOSPHORUS 2.1 mg/dL (2.5-4.9)
[2019-12-21 18:00] LABS: PLATELET ESTIMATE NORMAL
[2019-12-21 20:00] VITALS: BP 133/79
[2019-12-22 00:17] VITALS: BP 140/72
[2019-12-22] MEDS: CEFTRIAXONE 1,000 MG in DEXTROSE 5% WATER 50 ML IV SCH (03:02)
[2019-12-22] MEDS: AZITHROMYCIN 500 MG in DEXT 5% WATER 250 ML IV SCH (03:59)
[2019-12-22 04:00] VITALS: BP 97/69
[2019-12-22 06:11] LABS: CHLORIDE 100 mEq/L (98-107)
[2019-12-22 06:31] LABS: HEMATOCRIT. 30.8 % (36.0-48.0); HEMOGLOBIN. 10.4 g/dL (12.0-16.0); MEAN CORPUSCULAR HEMOGLOBIN 29.5 pg (28.0-32.0); MEAN CORPUSCULAR VOLUME 87.7 fL (81.0-99.0); MEAN PLATELET VOLUME 7.9 fl (7.4-10.4); PLATELET 331 x1000/uL (130-400); RED BLOOD CELL COUNT 3.51 mill/uL (4.2-5.4); RED CELL DISTRIBUTION WIDTH 14.7 % (11.6-14.6)
[2019-12-22 08:00] VITALS: BP 141/84
[2019-12-22] MEDS: PHENYTOIN SODIUM EXTENDED 100MG CAPSULE PO SCH ×2 (09:08→21:00)
[2019-12-22] MEDS: ACETAMINOPHEN 325MG TABLET PO PRN ×2 (09:09→21:00)
[2019-12-22] MEDS: BENAZEPRIL 10MG TABLET PO SCH (09:09)
[2019-12-22] MEDS: AMLODIPINE 10MG TABLET PO SCH (09:09)
[2019-12-22] MEDS: APIXABAN 5 MG TABLET PO SCH (09:09)
[2019-12-22] MEDS: GUAIFENESIN 600MG ER TABLET PO SCH ×2 (09:11→21:01)
[2019-12-22 12:00] VITALS: BP 103/65
[2019-12-22] MEDS ORDERED: SODIUM CHLORIDE 0.9% 1,000 ML IV ONE (13:30)
[2019-12-22 15:10] LABS: PLATELET ESTIMATE NORMAL
[2019-12-22 16:00] VITALS: BP 107/65
[2019-12-22] MEDS: METRONIDAZOLE 500 MG PREMIX 100 ML IV SCH (18:14)
[2019-12-22 20:18] VITALS: BP 144/86
[2019-12-22] MEDS: ALBUTEROL (0.083%) 2.5MG/3ML NEB HHN SCH (20:52)
[2019-12-22] MEDS: DEXT 5%/0.9% NACL 1,000 ML IV SCH (21:07)
[2019-12-23] VITALS (7 sets, daily range): BP systolic 108–151; BP diastolic 61–88
[2019-12-23] MEDS: ALBUTEROL (0.083%) 2.5MG/3ML NEB HHN SCH ×2 (00:50→20:55)
[2019-12-23] MEDS: METRONIDAZOLE 500 MG PREMIX 100 ML IV SCH ×3 (02:24→17:09)
[2019-12-23] MEDS: CEFTRIAXONE 1,000 MG in DEXTROSE 5% WATER 50 ML IV SCH (03:33)
[2019-12-23] MEDS: AZITHROMYCIN 500 MG in DEXT 5% WATER 250 ML IV SCH (04:08)
[2019-12-23 05:33] LABS: HEMATOCRIT. 27.6 % (36.0-48.0); HEMOGLOBIN. 9.4 g/dL (12.0-16.0); MEAN CORPUSCULAR HEMOGLOBIN 29.7 pg (28.0-32.0); MEAN CORPUSCULAR VOLUME 86.9 fL (81.0-99.0); MEAN PLATELET VOLUME 7.2 fl (7.4-10.4); PLATELET 407 x1000/uL (130-400); RED BLOOD CELL COUNT 3.18 mill/uL (4.2-5.4)
[2019-12-23 06:16] LABS: CHLORIDE 102 mEq/L (98-107)
[2019-12-23] MEDS: DEXT 5%/0.9% NACL 1,000 ML IV SCH ×2 (07:00→17:09)
[2019-12-23] MEDS: BENAZEPRIL 10MG TABLET PO SCH (08:48)
[2019-12-23] MEDS: GUAIFENESIN 600MG ER TABLET PO SCH ×2 (08:48→22:05)
[2019-12-23] MEDS: PHENYTOIN SODIUM EXTENDED 100MG CAPSULE PO SCH ×2 (08:48→22:05)
[2019-12-23] MEDS: AMLODIPINE 10MG TABLET PO SCH (08:48)
[2019-12-23] MEDS: ACETAMINOPHEN 325MG TABLET PO PRN (08:49)
[2019-12-23 14:47] LABS: PLATELET ESTIMATE SLIGHTLY INCREASED
[2019-12-23] MEDS ORDERED: DIATR MEGLU/DIATRIZOATE SOLN 30ML PO NR (16:15)
[2019-12-23] MEDS ORDERED: IOHEXOL-300 100 ML BOTTLE ONE (21:40)
[2019-12-24] VITALS (11 sets, daily range): BP systolic 117–161; BP diastolic 64–98
[2019-12-24] MEDS: ALBUTEROL (0.083%) 2.5MG/3ML NEB HHN SCH ×4 (01:17→20:47)
[2019-12-24] MEDS: METRONIDAZOLE 500 MG PREMIX 100 ML IV SCH ×3 (02:00→18:00)
[2019-12-24] MEDS: DEXT 5%/0.9% NACL 1,000 ML IV SCH ×3 (03:00→23:37)
[2019-12-24] MEDS: CEFTRIAXONE 1,000 MG in DEXTROSE 5% WATER 50 ML IV SCH (03:00)
[2019-12-24] MEDS: AZITHROMYCIN 500 MG in DEXT 5% WATER 250 ML IV SCH (04:00)
[2019-12-24] MEDS: GUAIFENESIN 600MG ER TABLET PO SCH ×2 (09:22→23:37)
[2019-12-24] MEDS: PHENYTOIN SODIUM EXTENDED 100MG CAPSULE PO SCH ×2 (09:22→23:34)
[2019-12-24] MEDS: BENAZEPRIL 10MG TABLET PO SCH (09:22)
[2019-12-24] MEDS: AMLODIPINE 10MG TABLET PO SCH (09:22)
[2019-12-24 10:35] LABS: HEMATOCRIT. 31.1 % (36.0-48.0); HEMOGLOBIN. 10.3 g/dL (12.0-16.0); MEAN CORPUSCULAR HEMOGLOBIN 29.4 pg (28.0-32.0); MEAN CORPUSCULAR VOLUME 88.7 fL (81.0-99.0); MEAN PLATELET VOLUME 7.5 fl (7.4-10.4); PLATELET 396 x1000/uL (130-400); RED CELL DISTRIBUTION WIDTH 14.8 % (11.6-14.6)
[2019-12-24 10:41] LABS: CHLORIDE 101 mEq/L (98-107)
[2019-12-24] MEDS ORDERED: VANCOMYCIN 1 G PREMIX 200 ML IV SCH (12:00)
[2019-12-24 13:35] LABS: PLATELET ESTIMATE NORMAL
[2019-12-24] MEDS ORDERED: KCL 20MEQ/100ML PREMIX 100 ML IV SCH (14:00)
[2019-12-24] MEDS ORDERED: SKIN ADHESIVE 0.7 GM EA TOP ONE (16:00)
[2019-12-24] MEDS ORDERED: LIDOCAINE HCL 1% 20ML VIAL (Pyxis) INJ ONE (16:00)
[2019-12-24] MEDS ORDERED: BACITRACIN 50,000 UNITS/VIAL ONE (16:01)
[2019-12-24] MEDS ORDERED: BUPIVACAINE HCL/PF 0.5% (5MG/ML) 10ML ONE (16:01)
[2019-12-24] MEDS ORDERED: FENTANYL CITRATE/PF 50MCG/ML 2ML VIAL ONE ×2 (18:27→19:13)
[2019-12-24] MEDS ORDERED: EPHEDRINE SULFATE 50MG/ML VIAL ONE (18:27)
[2019-12-24] MEDS ORDERED: NEOSTIGMINE METHYLSULFATE 1MG/ML 10 ML VIAL ONE (18:27)
[2019-12-24] MEDS ORDERED: SUCCINYLCHOLINE CHLORIDE 200MG/10ML IV ONE (18:27)
[2019-12-24] MEDS ORDERED: GLYCOPYRROLATE 0.2 MG/ML 2ML VIAL ONE (18:27)
[2019-12-24] MEDS ORDERED: PHENYLEPHRINE HCL 10 MG/ML 1ML (IV VIAL) IV ONE (18:27)
[2019-12-24] MEDS ORDERED: ONDANSETRON HCL 4MG/2ML INJ ONE (18:27)
[2019-12-24] MEDS ORDERED: MIDAZOLAM HCL 2 MG/2 ML VIAL ONE (18:27)
[2019-12-24] MEDS ORDERED: METOCLOPRAMIDE HCL 10MG/2ML VIAL ONE (18:27)
[2019-12-24] MEDS ORDERED: PROPOFOL 200MG/20ML VIAL IV ONE (18:27)
[2019-12-24] MEDS ORDERED: ALBUMIN HUMAN 12.5G/250ML (5%) IV ONE (18:29)
[2019-12-24] MEDS ORDERED: ROCURONIUM BROMIDE 10MG/ML VIAL 5ML IV ONE (18:32)
[2019-12-24] MEDS ORDERED: LABETALOL HCL 5MG/ML VIAL 20ML IV ONE (19:49)
[2019-12-24] MEDS ORDERED: MORPHINE SULFATE 2 MG/ML CPJ (NOT FOR IM USE) IV PRN (20:00)
[2019-12-24] MEDS ORDERED: ONDANSETRON HCL 4MG/2ML INJ IV PRN (20:00)
[2019-12-24] MEDS ORDERED: SODIUM CHLORIDE 0.9% 1,000 ML IV ONE (20:00)
[2019-12-24] MEDS ORDERED: HYDROMORPHONE HCL/PF 2MG/ML CPJ IV PRN (20:00)
[2019-12-24 21:24] LABS: BG BASE EXCESS -9.4 mmol/L (-2.0-2.0); BG CARBOXYHEMOGLOBIN 0.3 % (0.5-1.5); BG DEOXYHEMOGLOBIN 11.1 % (0.0-5.0); BG FRACTION INSPIRED OXYGEN 98; BG HCO3 ACT 18.2 mmol/L (22.0-26.0); BG METHEMOGLOBIN 0.2 % (0.0-1.5); BG OXYGEN SATURATION 88.8 % (92.0-98.5); BG OXYHEMOGLOBIN 88.4 % (94.0-97.0); BG PCO2 47.1 mmHg (35.0-45.0); BG PH 7.204 (7.350-7.450); BG PO2 69.6 mmHg (75.0-100.0); BG SAMPLE SITE LEFT RADIAL; BG TOTAL HEMOGLOBIN 9.7 g/dL (12.0-18.0); BG VENT MODE COOL AEROSOL
[2019-12-24] MEDS ORDERED: SODIUM BICARBONATE 8.4% 1 MEQ/ML 50ML SYR IV NR (21:45)
[2019-12-24] MEDS ORDERED: SODIUM BICARBONATE 8.4% MEQ/ML 50ML VIAL IV ONE (21:56)
[2019-12-24 23:50] LABS: BG BASE EXCESS -2.4 mmol/L (-2.0-2.0); BG CARBOXYHEMOGLOBIN 0.3 % (0.5-1.5); BG DEOXYHEMOGLOBIN 0.8 % (0.0-5.0); BG FRACTION INSPIRED OXYGEN 60; BG HCO3 ACT 21.6 mmol/L (22.0-26.0); BG METHEMOGLOBIN 0.2 % (0.0-1.5); BG OXYGEN SATURATION 99.2 % (92.0-98.5); BG OXYHEMOGLOBIN 98.7 % (94.0-97.0); BG PO2 177.5 mmHg (75.0-100.0); BG TOTAL HEMOGLOBIN 9.8 g/dL (12.0-18.0); BG VENT MODE VENT - AC
[2019-12-25] VITALS (28 sets, daily range): BP systolic 86–169; BP diastolic 50–94
[2019-12-25] MEDS: METRONIDAZOLE 500 MG PREMIX 100 ML IV SCH ×3 (02:06→17:15)
[2019-12-25] MEDS: ALBUTEROL (0.083%) 2.5MG/3ML NEB HHN SCH ×4 (02:34→20:10)
[2019-12-25] MEDS ORDERED: VANCOMYCIN 500 MG PREMIX 100 ML IV SCH ×2 (03:00)
[2019-12-25] MEDS: ACETAMINOPHEN 325MG TABLET PO PRN ×2 (05:45→22:26)
[2019-12-25 06:22] LABS: BASOPHILS % 0.5 % (0.0-2.0); EOSINOPHILS % 0.1 % (0.0-5.0); HEMATOCRIT. 25.4 % (36.0-48.0); HEMOGLOBIN. 8.6 g/dL (12.0-16.0); LYMPHOCYTES % 8.1 % (20.0-50.0); MEAN CORPUSCULAR HEMOGLOBIN 29.4 pg (28.0-32.0); MEAN CORPUSCULAR VOLUME 86.7 fL (81.0-99.0); MEAN PLATELET VOLUME 7.2 fl (7.4-10.4); MONOCYTES % 11.6 % (2.0-8.0); NEUTROPHILS % 79.7 % (40.0-76.0); PLATELET 377 x1000/uL (130-400); RED BLOOD CELL COUNT 2.93 mill/uL (4.2-5.4)
[2019-12-25 06:42] LABS: CHLORIDE 103 mEq/L (98-107)
[2019-12-25] MEDS: DEXT 5%/0.9% NACL 1,000 ML IV SCH ×2 (09:29→22:07)
[2019-12-25 09:42] LABS: BG BASE EXCESS -3.8 mmol/L (-2.0-2.0); BG CARBOXYHEMOGLOBIN 0.3 % (0.5-1.5); BG DEOXYHEMOGLOBIN 0.9 % (0.0-5.0); BG FRACTION INSPIRED OXYGEN 60; BG HCO3 ACT 20.8 mmol/L (22.0-26.0); BG OXYGEN SATURATION 99.1 % (92.0-98.5); BG OXYHEMOGLOBIN 98.8 % (94.0-97.0); BG PCO2 35.6 mmHg (35.0-45.0); BG PH 7.384 (7.350-7.450); BG SAMPLE SITE RIGHT RADIAL; BG TOTAL HEMOGLOBIN 9.4 g/dL (12.0-18.0); BG VENT MODE VENT - SIMV
[2019-12-25] MEDS ORDERED: LORAZEPAM 2MG/ML CPJ IV SCH (11:15)
[2019-12-25] MEDS: PANTOPRAZOLE SODIUM 40 MG/VIAL IV SCH (11:37)
[2019-12-25] MEDS: PHENYTOIN SODIUM EXTENDED 100MG CAPSULE PO SCH ×2 (11:42→22:07)
[2019-12-25] MEDS: AMLODIPINE 10MG TABLET PO SCH (11:42)
[2019-12-25] MEDS: GUAIFENESIN 600MG ER TABLET PO SCH ×2 (11:42→22:07)
[2019-12-25] MEDS: VANCOMYCIN 750 MG PREMIX 150 ML IV SCH (12:57)
[2019-12-25] MEDS ORDERED: GADOTERATE MEGLUMINE 5 MMOL/10 ML VIAL IV ONE (14:56)
[2019-12-25] MEDS: BENAZEPRIL 10MG TABLET PO SCH (15:02)
[2019-12-25] MEDS: FENTANYL CITRATE/PF 1,000 MCG in SODIUM CHLORIDE 0.9% 80 ML IV PRN (15:46)
[2019-12-25] MEDS: LORAZEPAM 2MG/ML CPJ IV PRN (22:26)
[2019-12-26] VITALS (63 sets, daily range): BP systolic 63–152; BP diastolic 34–101
[2019-12-26] MEDS: VANCOMYCIN 750 MG PREMIX 150 ML IV SCH ×3 (00:23→23:32)
[2019-12-26] MEDS: ALBUTEROL (0.083%) 2.5MG/3ML NEB HHN SCH ×3 (01:55→20:42)
[2019-12-26] MEDS: METRONIDAZOLE 500 MG PREMIX 100 ML IV SCH ×3 (02:13→17:35)
[2019-12-26] MEDS: FENTANYL CITRATE/PF 1,000 MCG in SODIUM CHLORIDE 0.9% 80 ML IV PRN ×2 (02:18→16:59)
[2019-12-26] MEDS: DEXT 5%/0.9% NACL 1,000 ML IV SCH ×3 (04:30→23:31)
[2019-12-26 05:55] LABS: BASOPHILS % 0.8 % (0.0-2.0); EOSINOPHILS % 0.2 % (0.0-5.0); HEMATOCRIT. 28.2 % (36.0-48.0); HEMOGLOBIN. 9.2 g/dL (12.0-16.0); LYMPHOCYTES % 7.3 % (20.0-50.0); MEAN CORPUSCULAR HEMOGLOBIN 29.1 pg (28.0-32.0); MEAN CORPUSCULAR VOLUME 89.7 fL (81.0-99.0); MEAN PLATELET VOLUME 7.2 fl (7.4-10.4); MONOCYTES % 13.3 % (2.0-8.0); NEUTROPHILS % 78.4 % (40.0-76.0); PLATELET 294 x1000/uL (130-400); RED BLOOD CELL COUNT 3.14 mill/uL (4.2-5.4); RED CELL DISTRIBUTION WIDTH 15.2 % (11.6-14.6)
[2019-12-26 06:07] LABS: CHLORIDE 106 mEq/L (98-107)
[2019-12-26] MEDS ORDERED: POTASSIUM CHLORIDE INJ 40 MEQ in DEXT 5% WATER 250 ML IV ONE (08:30)
[2019-12-26] MEDS: BENAZEPRIL 10MG TABLET PO SCH (08:36)
[2019-12-26] MEDS: PANTOPRAZOLE SODIUM 40 MG/VIAL IV SCH (08:36)
[2019-12-26] MEDS: AMLODIPINE 10MG TABLET PO SCH (08:36)
[2019-12-26] MEDS: PHENYTOIN SODIUM EXTENDED 100MG CAPSULE PO SCH ×2 (08:36→21:36)
[2019-12-26] MEDS: GUAIFENESIN 600MG ER TABLET PO SCH ×2 (08:36→21:36)
[2019-12-26 08:45] LABS: BG BASE EXCESS -9.3 mmol/L (-2.0-2.0); BG CARBOXYHEMOGLOBIN 0.2 % (0.5-1.5); BG DEOXYHEMOGLOBIN 14.5 % (0.0-5.0); BG FRACTION INSPIRED OXYGEN 60; BG METHEMOGLOBIN 0.2 % (0.0-1.5); BG OXYGEN SATURATION 85.4 % (92.0-98.5); BG OXYHEMOGLOBIN 85.1 % (94.0-97.0); BG PCO2 52.6 mmHg (35.0-45.0); BG PH 7.176 (7.350-7.450); BG PO2 57.5 mmHg (75.0-100.0); BG SAMPLE SITE RIGHT RADIAL; BG TOTAL HEMOGLOBIN 10.6 g/dL (12.0-18.0); BG VENT MODE VENT - SIMV
[2019-12-26] MEDS ORDERED: PROPOFOL 10MG/ML 100ML 100 ML IV PRN (12:15)
[2019-12-26] MEDS: PHENYLEPHRINE 50 MG in DEXT 5% WATER 245 ML IV PRN ×2 (12:27→21:50)
[2019-12-26 12:43] LABS: BG BASE EXCESS -7.9 mmol/L (-2.0-2.0); BG CARBOXYHEMOGLOBIN 0.1 % (0.5-1.5); BG DEOXYHEMOGLOBIN 8.4 % (0.0-5.0); BG FRACTION INSPIRED OXYGEN 100; BG HCO3 ACT 18.3 mmol/L (22.0-26.0); BG METHEMOGLOBIN 0.1 % (0.0-1.5); BG OXYGEN SATURATION 91.6 % (92.0-98.5); BG OXYHEMOGLOBIN 91.4 % (94.0-97.0); BG PCO2 40.1 mmHg (35.0-45.0); BG PH 7.277 (7.350-7.450); BG PO2 63.8 mmHg (75.0-100.0); BG SAMPLE SITE RIGHT BRACHIAL; BG TOTAL HEMOGLOBIN 9.8 g/dL (12.0-18.0); BG VENT MODE VENT - AC
[2019-12-26] MEDS: LORAZEPAM 2MG/ML CPJ IV PRN (12:47)
[2019-12-26 14:13] LABS: CHLORIDE 108 mEq/L (98-107)
[2019-12-26] MEDS ORDERED: ALBUMIN HUMAN 25GM/500ML (5%) IV SCH (15:30)
[2019-12-26] MEDS ORDERED: FUROSEMIDE 100MG/10ML VIAL IVP SCH (17:00)
[2019-12-26] MEDS: ACETAMINOPHEN 325MG TABLET PO PRN (17:12)
[2019-12-26] MEDS: DOCUSATE SODIUM 100MG CAPSULE PO PRN (17:35)
[2019-12-26] MEDS ORDERED: SODIUM CHLORIDE 0.9% 1,000 ML IV ONE (22:30)
[2019-12-26] MEDS ORDERED: FUROSEMIDE 40MG/4ML VIAL IVP NR (22:45)
[2019-12-27] VITALS (94 sets, daily range): BP systolic 41–163; BP diastolic 12–107
[2019-12-27 01:36] LABS: BG BASE EXCESS -15.5 mmol/L (-2.0-2.0); BG CARBOXYHEMOGLOBIN 0.2 % (0.5-1.5); BG DEOXYHEMOGLOBIN 10.5 % (0.0-5.0); BG FRACTION INSPIRED OXYGEN 100; BG HCO3 ACT 14.5 mmol/L (22.0-26.0); BG METHEMOGLOBIN 0.2 % (0.0-1.5); BG OXYGEN SATURATION 89.5 % (92.0-98.5); BG OXYHEMOGLOBIN 89.1 % (94.0-97.0); BG PCO2 54.1 mmHg (35.0-45.0); BG PH 7.047 (7.350-7.450); BG PO2 64.9 mmHg (75.0-100.0); BG SAMPLE SITE RIGHT FEMORAL; BG TOTAL HEMOGLOBIN 9.8 g/dL (12.0-18.0); BG VENT MODE VENT - AC
[2019-12-27] MEDS ORDERED: SODIUM BICARBONATE 8.4% 1 MEQ/ML 50ML SYR IV ONE ×2 (01:45→21:24)
[2019-12-27] MEDS: METRONIDAZOLE 500 MG PREMIX 100 ML IV SCH ×2 (01:57→09:16)
[2019-12-27] MEDS: NOREPINEPHRINE 32 MG in DEXT 5% WATER 218 ML IV PRN ×2 (02:00→21:14)
[2019-12-27] MEDS ORDERED: SODIUM BICARBONATE 8.4% 1 MEQ/ML 50ML SYR IV SCH ×2 (02:00→23:30)
[2019-12-27] MEDS: ALBUTEROL (0.083%) 2.5MG/3ML NEB HHN SCH ×4 (02:15→20:41)
[2019-12-27 04:19] LABS: BG BASE EXCESS -7.4 mmol/L (-2.0-2.0); BG CARBOXYHEMOGLOBIN 0.3 % (0.5-1.5); BG DEOXYHEMOGLOBIN 4.5 % (0.0-5.0); BG FRACTION INSPIRED OXYGEN 100; BG HCO3 ACT 19.6 mmol/L (22.0-26.0); BG METHEMOGLOBIN 0.2 % (0.0-1.5); BG OXYGEN SATURATION 95.5 % (92.0-98.5); BG PCO2 46.3 mmHg (35.0-45.0); BG PH 7.244 (7.350-7.450); BG PO2 75.7 mmHg (75.0-100.0); BG SAMPLE SITE LEFT RADIAL; BG VENT MODE VENT - AC
[2019-12-27] MEDS: PHENYLEPHRINE 50 MG in DEXT 5% WATER 245 ML IV PRN ×3 (04:20→22:30)
[2019-12-27] MEDS: AMLODIPINE 10MG TABLET PO SCH (09:00)
[2019-12-27] MEDS: BENAZEPRIL 10MG TABLET PO SCH (09:00)
[2019-12-27] MEDS: PANTOPRAZOLE SODIUM 40 MG/VIAL IV SCH (09:16)
[2019-12-27] MEDS: DOCUSATE SODIUM 100MG CAPSULE PO PRN (09:17)
[2019-12-27] MEDS: PHENYTOIN SODIUM EXTENDED 100MG CAPSULE PO SCH ×2 (09:17→23:20)
[2019-12-27] MEDS: GUAIFENESIN 600MG ER TABLET PO SCH ×2 (09:17→23:21)
[2019-12-27] MEDS: DEXT 5%/0.9% NACL 1,000 ML IV SCH (09:19)
[2019-12-27] MEDS ORDERED: MIDAZOLAM HCL 100 MG in DEXT 5% WATER 80 ML IV PRN (09:30)
[2019-12-27 09:59] LABS: HEMATOCRIT. 27.8 % (36.0-48.0); HEMOGLOBIN. 8.9 g/dL (12.0-16.0); MEAN CORPUSCULAR HEMOGLOBIN 29.2 pg (28.0-32.0); MEAN CORPUSCULAR VOLUME 91.4 fL (81.0-99.0); MEAN PLATELET VOLUME 7.7 fl (7.4-10.4); PLATELET 301 x1000/uL (130-400); RED BLOOD CELL COUNT 3.04 mill/uL (4.2-5.4); RED CELL DISTRIBUTION WIDTH 15.5 % (11.6-14.6)
[2019-12-27] MEDS ORDERED: SODIUM BICARBONATE 8.4% 1 MEQ/ML 50ML SYR IV NR ×3 (10:00→21:30)
[2019-12-27 10:40] LABS: PLATELET ESTIMATE NORMAL
[2019-12-27] MEDS: VANCOMYCIN 750 MG PREMIX 150 ML IV SCH (11:24)
[2019-12-27] MEDS ORDERED: ENOXAPARIN 40MG/0.4ML SYR SUBCUT SCH (12:00)
[2019-12-27 13:14] LABS: CHLORIDE 99 mEq/L (98-107)
[2019-12-27 13:20] LABS: BG BASE EXCESS -9.4 mmol/L (-2.0-2.0); BG DEOXYHEMOGLOBIN 12.5 % (0.0-5.0); BG HCO3 ACT 18.1 mmol/L (22.0-26.0); BG METHEMOGLOBIN 0.2 % (0.0-1.5); BG OXYGEN SATURATION 87.5 % (92.0-98.5); BG OXYHEMOGLOBIN 87.3 % (94.0-97.0); BG PCO2 46.3 mmHg (35.0-45.0); BG PH 7.209 (7.350-7.450); BG PO2 54.9 mmHg (75.0-100.0); BG SAMPLE SITE RIGHT RADIAL; BG TOTAL HEMOGLOBIN 10.2 g/dL (12.0-18.0); BG VENT MODE VENT - AC
[2019-12-27 14:10] LABS: PHOSPHORUS 1.9 mg/dL (2.5-4.9)
[2019-12-27] MEDS: PIPERACILLIN/TAZOBACTAM 3.375 G in DEXT 5% WATER 100 ML IV SCH ×2 (15:46→23:32)
[2019-12-27] MEDS ORDERED: MAGNESIUM 4 G PREMIX 100 ML IV NR (16:00)
[2019-12-27] MEDS ORDERED: POTASSIUM PHOS,M-BASIC-D-BASIC 30 MMOL in DEXT 5% WATER 500 ML IV NR (16:00)
[2019-12-27] MEDS ORDERED: ALBUMIN HUMAN 25GM/100ML (25%) IV NR (21:30)
[2019-12-27] MEDS ORDERED: SODIUM BICARBONATE 100 MEQ in SODIUM CHLORIDE 0.45% 1,000 ML IV SCH (22:00)
[2019-12-27] MEDS ORDERED: PIPERACILLIN/TAZOBACTAM 3.375 G/VIAL IV SCH (22:00)
[2019-12-27 23:22] LABS: BG BASE EXCESS -10.9 mmol/L (-2.0-2.0); BG CARBOXYHEMOGLOBIN 0.1 % (0.5-1.5); BG DEOXYHEMOGLOBIN 40.2 % (0.0-5.0); BG FRACTION INSPIRED OXYGEN 100; BG HCO3 ACT 19.1 mmol/L (22.0-26.0); BG METHEMOGLOBIN 0.1 % (0.0-1.5); BG OXYGEN SATURATION 59.7 % (92.0-98.5); BG OXYHEMOGLOBIN 59.6 % (94.0-97.0); BG PCO2 66.4 mmHg (35.0-45.0); BG PH 7.077 (7.350-7.450); BG PO2 37.3 mmHg (75.0-100.0); BG SAMPLE SITE LEFT RADIAL; BG TOTAL HEMOGLOBIN 9.6 g/dL (12.0-18.0); BG VENT MODE VENT - AC
[2019-12-27] MEDS: VASOPRESSIN 20 UNIT in SODIUM CHLORIDE 0.9% 99 ML IV PRN (23:35)
[2019-12-28] VITALS (95 sets, daily range): BP systolic 76–153; BP diastolic 39–103
[2019-12-28 02:22] LABS: BG BASE EXCESS -8.3 mmol/L (-2.0-2.0); BG CARBOXYHEMOGLOBIN 0.2 % (0.5-1.5); BG DEOXYHEMOGLOBIN 35.4 % (0.0-5.0); BG FRACTION INSPIRED OXYGEN 100; BG HCO3 ACT 19.8 mmol/L (22.0-26.0); BG METHEMOGLOBIN 0.2 % (0.0-1.5); BG OXYGEN SATURATION 64.5 % (92.0-98.5); BG OXYHEMOGLOBIN 64.2 % (94.0-97.0); BG PH 7.183 (7.350-7.450); BG PO2 36.6 mmHg (75.0-100.0); BG SAMPLE SITE LEFT RADIAL; BG TOTAL HEMOGLOBIN 9.7 g/dL (12.0-18.0); BG VENT MODE VENT - AC
[2019-12-28] MEDS: ALBUTEROL (0.083%) 2.5MG/3ML NEB HHN SCH ×4 (02:32→19:52)
[2019-12-28] MEDS ORDERED: SODIUM BICARBONATE 8.4% 1 MEQ/ML 50ML SYR IV SCH (02:45)
[2019-12-28] MEDS: PHENYLEPHRINE 50 MG in DEXT 5% WATER 245 ML IV PRN ×2 (03:45→08:30)
[2019-12-28] MEDS: NOREPINEPHRINE 32 MG in DEXT 5% WATER 218 ML IV PRN ×2 (04:43→20:08)
[2019-12-28 05:45] LABS: BASOPHILS % 0.2 % (0.0-2.0); EOSINOPHILS % 0.1 % (0.0-5.0); HEMATOCRIT. 27.7 % (36.0-48.0); HEMOGLOBIN. 8.8 g/dL (12.0-16.0); LYMPHOCYTES % 7.4 % (20.0-50.0); MEAN PLATELET VOLUME 8.3 fl (7.4-10.4); MONOCYTES % 9.7 % (2.0-8.0); NEUTROPHILS % 82.6 % (40.0-76.0); PLATELET 248 x1000/uL (130-400); RED BLOOD CELL COUNT 3.04 mill/uL (4.2-5.4)
[2019-12-28] MEDS: VASOPRESSIN 20 UNIT in SODIUM CHLORIDE 0.9% 99 ML IV PRN ×2 (06:14→18:16)
[2019-12-28 06:19] LABS: CHLORIDE 100 mEq/L (98-107)
[2019-12-28] MEDS ORDERED: VANCOMYCIN 750 MG PREMIX 150 ML IV SCH (08:00)
[2019-12-28] MEDS: PANTOPRAZOLE SODIUM 40 MG/VIAL IV SCH (08:09)
[2019-12-28] MEDS: PIPERACILLIN/TAZOBACTAM 3.375 G in DEXT 5% WATER 100 ML IV SCH ×3 (08:09→23:37)
[2019-12-28] MEDS: AMLODIPINE 10MG TABLET PO SCH (09:00)
[2019-12-28] MEDS: BENAZEPRIL 10MG TABLET PO SCH (09:00)
[2019-12-28] MEDS: GUAIFENESIN 600MG ER TABLET PO SCH (09:00)
[2019-12-28 09:05] LABS: BG BASE EXCESS -5.8 mmol/L (-2.0-2.0); BG CARBOXYHEMOGLOBIN 0.1 % (0.5-1.5); BG DEOXYHEMOGLOBIN 21.7 % (0.0-5.0); BG FRACTION INSPIRED OXYGEN 100; BG HCO3 ACT 22.5 mmol/L (22.0-26.0); BG METHEMOGLOBIN 0.3 % (0.0-1.5); BG OXYGEN SATURATION 78.2 % (92.0-98.5); BG OXYHEMOGLOBIN 77.9 % (94.0-97.0); BG PCO2 60.1 mmHg (35.0-45.0); BG PH 7.192 (7.350-7.450); BG TOTAL HEMOGLOBIN 9.5 g/dL (12.0-18.0); BG VENT MODE VENT - AC
[2019-12-28] MEDS ORDERED: SODIUM BICARBONATE 8.4% 1 MEQ/ML 50ML SYR IV NR (09:15)
[2019-12-28] MEDS ORDERED: PHENYTOIN 100 MG/4 ML UDC NG NR (09:45)
[2019-12-28] MEDS: ENOXAPARIN 80MG/0.8ML SYR SUBCUT SCH ×2 (09:49→21:08)
[2019-12-28 10:28] LABS: PHOSPHORUS 4.6 mg/dL (2.5-4.9)
[2019-12-28] MEDS ORDERED: KCL 20MEQ/100ML PREMIX 100 ML IV SCH (11:00)
[2019-12-28 12:02] LABS: BG BASE EXCESS -6.5 mmol/L (-2.0-2.0); BG CARBOXYHEMOGLOBIN 0.1 % (0.5-1.5); BG DEOXYHEMOGLOBIN 11.1 % (0.0-5.0); BG FRACTION INSPIRED OXYGEN 100; BG HCO3 ACT 19.7 mmol/L (22.0-26.0); BG METHEMOGLOBIN 0.2 % (0.0-1.5); BG OXYGEN SATURATION 88.9 % (92.0-98.5); BG OXYHEMOGLOBIN 88.6 % (94.0-97.0); BG PH 7.289 (7.350-7.450); BG PO2 59.3 mmHg (75.0-100.0); BG SAMPLE SITE RIGHT RADIAL; BG TOTAL HEMOGLOBIN 9.1 g/dL (12.0-18.0); BG VENT MODE VENT - AC
[2019-12-28] MEDS: GUAIFENESIN 200MG/10ML SUGAR FREE UDC PO SCH ×3 (13:10→23:37)
[2019-12-28] MEDS: CITRIC ACID/SODIUM CITRATE SOLN 30ML UDC NG SCH ×2 (13:10→17:13)
[2019-12-28] MEDS: PHENYLEPHRINE 100 MG in DEXT 5% WATER 240 ML IV PRN (17:19)
[2019-12-28 20:30] LABS: BG BASE EXCESS -7.5 mmol/L (-2.0-2.0); BG DEOXYHEMOGLOBIN 0.8 % (0.0-5.0); BG FRACTION INSPIRED OXYGEN 100; BG HCO3 ACT 18.3 mmol/L (22.0-26.0); BG METHEMOGLOBIN 0.3 % (0.0-1.5); BG OXYGEN SATURATION 99.2 % (92.0-98.5); BG OXYHEMOGLOBIN 98.9 % (94.0-97.0); BG PCO2 38.5 mmHg (35.0-45.0); BG PH 7.296 (7.350-7.450); BG PO2 232.7 mmHg (75.0-100.0); BG SAMPLE SITE RIGHT RADIAL; BG TOTAL HEMOGLOBIN 9.5 g/dL (12.0-18.0); BG TOTAL RESPIRATORY RATE 40 b/min; BG VENT MODE VENT - AC
[2019-12-28] MEDS: MORPHINE SULFATE 2 MG/ML CPJ (NOT FOR IM USE) IV PRN (21:23)
[2019-12-28] MEDS: RIFAMPIN 300MG CAPSULE PO SCH (23:04)
[2019-12-28] MEDS: ETHAMBUTOL HCL 400MG TABLET PO SCH (23:04)
[2019-12-28] MEDS: PYRAZINAMIDE 500MG TABLET PO SCH (23:04)
[2019-12-28] MEDS: ISONIAZID 300MG TABLET PO SCH (23:46)
[2019-12-29] VITALS (79 sets, daily range): BP systolic 49–169; BP diastolic 24–97
[2019-12-29] MEDS: MORPHINE SULFATE 2 MG/ML CPJ (NOT FOR IM USE) IV PRN (01:35)
[2019-12-29] MEDS: ALBUTEROL (0.083%) 2.5MG/3ML NEB HHN SCH ×3 (01:56→14:33)
[2019-12-29] MEDS: PHENYLEPHRINE 100 MG in DEXT 5% WATER 240 ML IV PRN ×2 (03:22→12:23)
[2019-12-29 05:01] LABS: HEMATOCRIT. 30.1 % (36.0-48.0); HEMOGLOBIN. 9.7 g/dL (12.0-16.0); MEAN CORPUSCULAR HEMOGLOBIN 28.8 pg (28.0-32.0); MEAN PLATELET VOLUME 9.2 fl (7.4-10.4); PLATELET 225 x1000/uL (130-400); RED BLOOD CELL COUNT 3.35 mill/uL (4.2-5.4); RED CELL DISTRIBUTION WIDTH 15.8 % (11.6-14.6)
[2019-12-29] MEDS: GUAIFENESIN 200MG/10ML SUGAR FREE UDC PO SCH ×3 (05:59→17:19)
[2019-12-29] MEDS: VASOPRESSIN 20 UNIT in SODIUM CHLORIDE 0.9% 99 ML IV PRN ×2 (06:03→16:10)
[2019-12-29 08:04] LABS: NUCLEATED RED BLOOD CELLS 2 /100 WBC
[2019-12-29] MEDS: CITRIC ACID/SODIUM CITRATE SOLN 30ML UDC NG SCH ×2 (08:25→12:25)
[2019-12-29] MEDS: PANTOPRAZOLE SODIUM 40 MG/VIAL IV SCH (08:26)
[2019-12-29] MEDS: ISONIAZID 300MG TABLET PO SCH (08:28)
[2019-12-29] MEDS: ENOXAPARIN 80MG/0.8ML SYR SUBCUT SCH (08:28)
[2019-12-29] MEDS: ETHAMBUTOL HCL 400MG TABLET PO SCH (08:29)
[2019-12-29] MEDS: PYRAZINAMIDE 500MG TABLET PO SCH (08:29)
[2019-12-29] MEDS: RIFAMPIN 300MG CAPSULE PO SCH (08:29)
[2019-12-29] MEDS: PIPERACILLIN/TAZOBACTAM 3.375 G in DEXT 5% WATER 100 ML IV SCH ×2 (08:31→16:07)
[2019-12-29 08:47] LABS: BG BASE EXCESS -11.1 mmol/L (-2.0-2.0); BG DEOXYHEMOGLOBIN 14.8 % (0.0-5.0); BG FRACTION INSPIRED OXYGEN 100; BG HCO3 ACT 15.9 mmol/L (22.0-26.0); BG METHEMOGLOBIN 0.2 % (0.0-1.5); BG OXYGEN SATURATION 85.2 % (92.0-98.5); BG PCO2 39.8 mmHg (35.0-45.0); BG PO2 58.7 mmHg (75.0-100.0); BG SAMPLE SITE RIGHT RADIAL; BG TOTAL HEMOGLOBIN 10.5 g/dL (12.0-18.0); BG VENT MODE VENT - AC
[2019-12-29] MEDS ORDERED: PHENYTOIN 100 MG/4 ML UDC NG SCH (09:00)
[2019-12-29 09:06] LABS: IMMUNOGLOBULIN A 204 mg/dL (87-352); IMMUNOGLOBULIN G 902 mg/dL (586-1602); IMMUNOGLOBULIN M 33 mg/dL (26-217)
[2019-12-29] MEDS ORDERED: SODIUM BICARBONATE 8.4% 1 MEQ/ML 50ML SYR IV NR ×3 (10:00→16:45)
[2019-12-29] MEDS ORDERED: AMIODARONE HCL 900 MG in DEXT 5% WATER 482 ML IV PRN (11:45)
[2019-12-29] MEDS ORDERED: SODIUM CHLORIDE 0.9% 500 ML IV ONE (11:45)
[2019-12-29 12:29] LABS: BG CARBOXYHEMOGLOBIN 0.2 % (0.5-1.5); BG DEOXYHEMOGLOBIN 32.5 % (0.0-5.0); BG FRACTION INSPIRED OXYGEN 100; BG HCO3 ACT 17.5 mmol/L (22.0-26.0); BG METHEMOGLOBIN 0.1 % (0.0-1.5); BG OXYGEN SATURATION 67.4 % (92.0-98.5); BG OXYHEMOGLOBIN 67.2 % (94.0-97.0); BG PCO2 45.6 mmHg (35.0-45.0); BG PH 7.202 (7.350-7.450); BG PO2 43.2 mmHg (75.0-100.0); BG SAMPLE SITE RIGHT RADIAL; BG TOTAL HEMOGLOBIN 9.7 g/dL (12.0-18.0); BG VENT MODE VENT - AC
[2019-12-29] MEDS ORDERED: CALCIUM GLUCONATE 1,000 MG in DEXT 5% WATER 90 ML IV NR (14:00)
[2019-12-29] MEDS ORDERED: VANCOMYCIN 750 MG PREMIX 150 ML IV SCH (14:00)
[2019-12-29] MEDS ORDERED: CITRIC ACID/SODIUM CITRATE SOLN 30ML UDC NG SCH (15:00)
[2019-12-29 16:34] LABS: BG BASE EXCESS -10.8 mmol/L (-2.0-2.0); BG CARBOXYHEMOGLOBIN 0.3 % (0.5-1.5); BG DEOXYHEMOGLOBIN 28.3 % (0.0-5.0); BG FRACTION INSPIRED OXYGEN 100; BG HCO3 ACT 17.6 mmol/L (22.0-26.0); BG METHEMOGLOBIN 0.2 % (0.0-1.5); BG OXYGEN SATURATION 71.6 % (92.0-98.5); BG OXYHEMOGLOBIN 71.2 % (94.0-97.0); BG PCO2 50.5 mmHg (35.0-45.0); BG PH 7.159 (7.350-7.450); BG PO2 48.3 mmHg (75.0-100.0); BG SAMPLE SITE LEFT RADIAL; BG TOTAL HEMOGLOBIN 10.2 g/dL (12.0-18.0); BG VENT MODE VENT - AC
== END 2019-12-29 22:57 | disposition expired | DRG 710 ==
LOC: ER 12:41 → EDBEDREQSVC 15:57 → EDBEDREQTM 15:57 → EDBEDREQ 15:57 → 7EST 17:26 → EDBEDREQTM 17:31 → EDBEDREQ 17:31 → ENRESERV 20:25 → 6WST 12-20 13:28 → 7EST 12-20 16:16 → 6WST 12-20 23:50 → CVICU 12-24 23:07 → MICUSO 12-27 05:40
PROVIDERS: ADMIT Internal Medicine; ATTEND Internal Medicine
PROC: 0DTJ4ZZ Resection of Appendix, Percutaneous Endoscopic Approach (ICD-10-PCS; principal; 2019-12-24)
PROC: 0FB04ZX Excision of Liver, Percutaneous Endoscopic Approach, Diagnostic (ICD-10-PCS; 2019-12-24)
PROC: 5A1945Z Respiratory Ventilation, 24-96 Consecutive Hours (ICD-10-PCS; 2019-12-24)
PROC: 0DBW4ZZ Excision of Peritoneum, Percutaneous Endoscopic Approach (ICD-10-PCS; 2019-12-24)
PROC: 05H533Z Insertion of Infusion Device into Right Subclavian Vein, Percutaneous Approach (ICD-10-PCS; 2019-12-24)
PROC: B546ZZA Ultrasonography of Right Subclavian Vein, Guidance (ICD-10-PCS; 2019-12-24)
DX: A41.9 Sepsis, unspecified organism (principal); J96.00 Acute respiratory failure, unspecified whether with hypoxia or hypercapnia; J43.9 Emphysema, unspecified; G40.909 Epilepsy, unspecified, not intractable, without status epilepticus; E83.42 Hypomagnesemia; E87.1 Hypo-osmolality and hyponatremia; F17.200 Nicotine dependence, unspecified, uncomplicated; E86.1 Hypovolemia; N39.0 Urinary tract infection, site not specified; M85.80 Other specified disorders of bone density and structure, unspecified site; I10 Essential (primary) hypertension; K35.80 Unspecified acute appendicitis; K86.1 Other chronic pancreatitis; J45.909 Unspecified asthma, uncomplicated; E78.00 Pure hypercholesterolemia, unspecified; E11.9 Type 2 diabetes mellitus without complications; N17.0 Acute kidney failure with tubular necrosis; E87.6 Hypokalemia; E83.39 Other disorders of phosphorus metabolism; R65.21 Severe sepsis with septic shock; G92 Toxic encephalopathy; A15.9 Respiratory tuberculosis unspecified; C80.0 Disseminated malignant neoplasm, unspecified; D50.9 Iron deficiency anemia, unspecified; E11.69 Type 2 diabetes mellitus with other specified complication; E78.5 Hyperlipidemia, unspecified; E83.51 Hypocalcemia; F03.90 Unspecified dementia, unspecified severity, without behavioral disturbance, psychotic disturbance, mood disturbance, and anxiety; F17.210 Nicotine dependence, cigarettes, uncomplicated; I11.0 Hypertensive heart disease with heart failure; I25.10 Atherosclerotic heart disease of native coronary artery without angina pectoris; I47.1 Supraventricular tachycardia; I50.9 Heart failure, unspecified; J84.89 Other specified interstitial pulmonary diseases; K76.89 Other specified diseases of liver; J18.9 Pneumonia, unspecified organism; M46.24 Osteomyelitis of vertebra, thoracic region; Z20.828 Contact with and (suspected) exposure to other viral communicable diseases; M48.54XA Collapsed vertebra, not elsewhere classified, thoracic region, initial encounter for fracture; M48.56XA Collapsed vertebra, not elsewhere classified, lumbar region, initial encounter for fracture; M81.0 Age-related osteoporosis without current pathological fracture; W05.0XXA Fall from non-moving wheelchair, initial encounter; Z79.899 Other long term (current) drug therapy; Y93.89 Activity, other specified; Y92.89 Other specified places as the place of occurrence of the external cause; I25.2 Old myocardial infarction; Y99.8 Other external cause status; Z66 Do not resuscitate; Z78.1 Physical restraint status; Z78.9 Other specified health status; Z79.01 Long term (current) use of anticoagulants; Z91.81 History of falling; Z99.11 Dependence on respirator [ventilator] status
CPT/HCPCS: 36415; 36600; 71045; 71250; 72110; 72128; 72131; 72141; 72142; 72146; 72148; 74177; 76937; 80048; 80053; 80061; 80076; 80202; 80305; 81003; 82375; 82378; 82550; 82553; 82728; 82784; 82805; 82962; 83036; 83605; 83615; 83735; 83880; 84100; 84145; 84443; 84478; 84484; 85025; 85379; 85384; 85651; 86140; 86304; 86334; 86850; 86900; 87070; 87116; 87635; 87804; 88304; 88305; 88307; 93005; 93306; 93970; 94003; 94640; 94660; 99285; A9577; C1725; C1893; C9113; J0330; J0456; J0610; J0696; J1170; J1650; J1940; J2060; J2250; J2270; J2370; J2405; J2543; J2704; J2710; J2765; J3010; J3370; J3475; J3480; J3490; J7030; J7040; J7042; J7050; J7060; P9041; P9047; Q9963; Q9967; A4315